=== PATIENT | female | born 1955 | race Caucasian/White ===

== ENCOUNTER → 2016-03-11 | Outpatient (CLI) | payer OTHER | END | disposition home or self-care (01) | LOC: LABWHC1 10:46 | PROVIDERS: ATTEND Orthopaedic Surgery Sports Medicine | DX: Z01.810 Encounter for preprocedural cardiovascular examination (principal); S83.282A Other tear of lateral meniscus, current injury, left knee, initial encounter; S83.242A Other tear of medial meniscus, current injury, left knee, initial encounter | CPT/HCPCS: 36415; 93005 ==

== ENCOUNTER → 2016-04-28 | Outpatient (CLI) | payer OTHER ==
--- NOTE | 2016-04-28 11:02 | MM ---
Reason for exam: history of breast cancer, conservation therapy. Last mammogram was performed 2 years and 6 months ago. History: Patient is postmenopausal and has history of breast cancer at age 58. Benign US breast aspiration single LT of the left breast, January 03, 2016. Benign US breast localization LT, September 26, 2014. Malignant US breast localization LT, November 09, 2013. MG discontinued needle loc LT of the left breast, November 09, 2013. Malignant US biopsy breast VAD LT of the left breast, October 26, 2013. Malignant US biopsy breast add'l VAD LT of the left breast, October 26, 2013. Radiation therapy of the left breast, 2013. Benign US RT VAD breast biopsy of the right breast, October 12, 2011. Benign right breast aspiration of the right breast, October 12, 2011. Excisional biopsy of the right breast, March 17, 2005. Took estrogen for 1 month beginning at age 56. Physical Findings: Nurse did not find any significant physical abnormalities on exam. MG 3D Diag Mammo W/Cad YUDY Bilateral CC and MLO view(s) were taken. Prior study comparison: October 26, 2013, left breast MG diagnostic mammo LT wo CAD. October 03, 2013, bilateral MG screening mammo w CAD. The breast tissue is heterogeneously dense. This may lower the sensitivity of mammography. Benign calcifications. Post operative lumpectomy and radiation therapy changes in the left breast. These results were verbally communicated with the patient and result sheet given to the patient on 04/28/16. ASSESSMENT: Incomplete: need additional imaging evaluation, BI-RAD 0 RECOMMENDATION: Ultrasound of the right breast.
--- NOTE | 2016-04-28 11:04 | USB ---
Reason for exam: additional evaluation requested from abnormal screening. History: Patient is postmenopausal and has history of breast cancer at age 58. Benign US breast aspiration single LT of the left breast, January 03, 2016. Benign US breast localization LT, September 26, 2014. Malignant US breast localization LT, November 09, 2013. MG discontinued needle loc LT of the left breast, November 09, 2013. Malignant US biopsy breast VAD LT of the left breast, October 26, 2013. Malignant US biopsy breast add'l VAD LT of the left breast, October 26, 2013. Radiation therapy of the left breast, 2013. Benign US RT VAD breast biopsy of the right breast, October 12, 2011. Benign right breast aspiration of the right breast, October 12, 2011. Excisional biopsy of the right breast, March 17, 2005. Took estrogen for 1 month beginning at age 56. US Breast BILAT Right breast ultrasound including all four quadrants, the retroareolar region and axilla demonstrates no cystic or solid lesion seen. Left breast ultrasound including all four quadrants, the retroareolar region and axilla demonstrates 2.1 x 1.4 x 4.5cm fluid collection extending behind nipple at 10 o'clock, residual seroma. No suspicious masses bilaterally. These results were verbally communicated with the patient and result sheet given to the patient on 04/28/16. ASSESSMENT: Benign, BI-RAD 2 RECOMMENDATION: Follow-up diagnostic mammogram of both breasts in 1 year. Manage patient on a clinical basis.
== END | disposition home or self-care (01) ==
LOC: RADMAMWWP 09:27
PROVIDERS: ATTEND Radiology Diagnostic Radiology
DX: C50.912 Malignant neoplasm of unspecified site of left female breast (principal); N63 Unspecified lump in breast; R92.8 Other abnormal and inconclusive findings on diagnostic imaging of breast
CPT/HCPCS: 76641; G0204; G0279

== ENCOUNTER → 2016-06-29 | Outpatient (CLI) | payer OTHER ==
--- NOTE | 2016-06-29 09:36 | BD ---
EXAMINATION TYPE: MG DEXA axial skeleton. DATE OF EXAM: 06/29/2016 7:40 AM COMPARISON: 03.28.2015 DEXA bone scan. CLINICAL HISTORY: M19.90 OSTEOARTHRITIS Height: 66 Weight: 155 FRAX RISK QUESTIONS: Alcohol (3 or more units per day): NO Family History (Parent hip fracture): YES, MOTHER Glucocorticoids (More than 3mos): NO (Ex: prednisone, prednisolone, methylprednisolone, dexamethasone, and hydrocortisone). History of Fracture in Adulthood: NO Secondary Osteoporosis: NO 1. Type 1 Diabetes: NO 2. Hyperthyroidism: NO 3. Menopause before 45: NO 4. Malnutrition: NO 5. Chronic liver disease: NO Rheumatoid Arthritis: NO Current Tobacco Use: NO RISK FACTORS HISTORY OF: Family History of Osteoporosis: YES HER MOTHER AND SISTER Smoke tobacco: NO Drink Alcohol: NO Active: YES Diet low in dairy products/other sources of calcium: YES, GETS VERY LITTLE DAIRY Postmenopausal woman: 52 Lost more than 2 inches in height since high school: YES Adrenal Insufficiency: NO MEDICATIONS: Osteoporosis Medications: RECLAST..2016 How Lon YR, AND PRIOR USED FOSAMAX Additional Medications: AREMEDEX FOR 3 YRS, HX OF RADIATION, CALCIUM AND VIT D, XANAX, NEURONTIN, PAIN MEDS AND NSAIDS Additional History: HX OF BREAST CA....2013, 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 Bone mineral density as measured about the Lumbar spine is: ----- L1-L4(G/cm2): 1.206 T Score Values are as follows: ----- L1: -0.5 ----- L2: 0.4 ----- L3: 1.0 ----- L4: -0.2 ----- L1-L4: 0.2 Bone mineral density has: REMAINED THE SAME 0.0% since study of: 03.28.2015 Bone mineral density about the R hip (g/cm2): 0.778 Bone mineral density about the L hip (g/cm2): 0.741 T Score values are as follows: -----R Neck: -1.3 -----L Neck: -1.9 -----R Intertrochanter: -1.8 -----L Intertrochanter: -2.3 Bone mineral density has: Increased 3.1% since study of: 03.28.2015 FRAX %'S: 18.8% OF A CHANCE FOR A MAJOR OSTEOPOROTIC FX AND 1.3% CHANCE FOR A HIP FX....PROBABILI TY IN 10/YRS TIME IMPRESSION: Osteopenia (T Score between -2.5 and -1 as noted by T score values in both hips is redemonstrated and fairly stable. There remains slightly increased risk of fracture and the patient may be considered f or treatment. Re-Screen 1-2 years. NOTE: T-SCORE=SD OF THE YOUNG ADULT MEAN.
== END | disposition home or self-care (01) ==
LOC: RADBDWWP 07:06
PROVIDERS: ATTEND Family Medicine
DX: M85.80 Other specified disorders of bone density and structure, unspecified site (principal)
CPT/HCPCS: 77080

== ENCOUNTER 2016-10-22 17:19 | Emergency (ER) | payer MEDICARE, OTHER ==
[2016-10-22] MEDS ORDERED: DIPH,PERTUS(ACELL)TETVAC-LF 0.5 ML VIAL IM ONE (17:34)
[2016-10-22] MEDS ORDERED: HYDROcodone/APAP 10-325MG 1 EACH TAB PO ONE (17:34)
--- NOTE | 2016-10-22 17:43 | ED ---
Fall HPI - General Chief Complaint: Fall Stated Complaint: fall Time Seen by Provider: 10/22/16 17:28 Source: patient, EMS, RN notes reviewed Mode of arrival: EMS Limitations: no limitations - History of Present Illness Initial Comments: This a 61-year-old female presents emergency department via EMS chief complaint fall. Patient states she was at the [facility] and states that she was walking out states that she tripped and fell before striking her head. Patient did not lose consciousness so she complains of a headache. Patient has a laceration above the left eye. She is unsure last tetanus was. Patient denies any neck, back pain, upper extremity injury. She does complain of mild left knee pain states that she fell on the knee. Patient states she has had recent surgery to her left knee from the meniscus repair. Patient denies any dizziness, chest pain or shortness breath, nausea vomiting. - Related Data Home Medications Medication Instructions Recorded Confirmed ALPRAZolam [Xanax] 1 mg PO Q8HR 09/24/14 07/03/15 Anastrozole [Arimidex] 1 mg PO DAILY 09/24/14 07/03/15 Calcium Carbonate [Calcium] 1,200 mg PO DAILY 09/24/14 07/03/15 Cholecalciferol [Vitamin D3] 2,000 unit PO DAILY 09/24/14 07/03/15 HYDROcodone/APAP 7.5-325MG [Erwin 1 tab PO Q6HR PRN 09/24/14 07/03/15 7.5-325] Multivitamins, Thera [Theragran] 1 each PO DAILY 09/24/14 07/03/15 Cordova-3 Fatty Acids/Fish Oil [Fish 1 each PO DAILY 09/24/14 07/03/15 Oil 1,000 mg Softgel] amLODIPine [Norvasc] 5 mg PO DAILY 09/24/14 07/03/15 Previous Rx's Medication Instructions Recorded HYDROcodone/APAP 7.5-325MG [Erwin 1 each PO Q4H PRN #60 tab 09/26/14 7.5] Allergies Allergy/AdvReac Type Severity Reaction Status Date / Time sulfamethoxazole Allergy Rash/Hives Verified 10/22/16 17:29 [From Bactrim] trimethoprim [From Bactrim] Allergy Rash/Hives Verified 10/22/16 17:29 Review of Systems ROS Statement: Those systems with pertinent positive or pertinent negative responses have been documented in the HPI. ROS Other: All systems not noted in ROS Statement are negative. Past Medical History Past Medical History: Cancer, Hypertension, Osteoarthritis (OA) History of Any Multi-Drug Resistant Organisms: None Reported Past Surgical History: Breast Surgery, Tubal Ligation Additional Past Surgical History / Comment(s): BIOPSIES X 2 OF RIGHT BREAST. US CORE BX OF LEFT BREAST. Past Anesthesia/Blood Transfusion Reactions: No Reported Reaction Past Psychological History: Anxiety Smoking Status: Former smoker Past Alcohol Use History: Rare Past Drug Use History: None Reported - Past Family History Mother Family Medical History: No Reported History General Exam Limitations: no limitations General appearance: alert, in no apparent distress Head exam: Present: atraumatic, normocephalic, normal inspection Eye exam: Present: normal appearance, PERRL, EOMI, periorbital swelling (Mild left), periorbital tenderness (Mild left), other (5 cm laceration over the left superior orbital region). Absent: scleral icterus, conjunctival injection ENT exam: Present: normal exam, normal oropharynx, mucous membranes moist, TM's normal bilaterally Neck exam: Present: normal inspection. Absent: tenderness, meningismus, full ROM (Patient in c-collar), lymphadenopathy Respiratory exam: Present: normal lung sounds bilaterally. Absent: respiratory distress, wheezes, rales, rhonchi, stridor Cardiovascular Exam: Present: regular rate, normal rhythm, normal heart sounds. Absent: systolic murmur, diastolic murmur, rubs, gallop, clicks Extremities exam: Present: other (Left knee small abrasion noted, mild tenderness with palpation full range of motion neurovascular intact) Back exam: Present: full ROM. Absent: tenderness Neurological exam: Present: alert, oriented X3, CN II-XII intact, reflexes normal. Absent: motor sensory deficit Skin exam: Present: warm, dry, intact, normal color. Absent: rash Course Vital Signs 10/22/16 17:27 Temperature 97.1 F L Pulse Rate 91 Respiratory 18 Rate Blood Pressure 153/80 O2 Sat by Pulse 98 Oximetry Procedures - Laceration Laceration #1 Consent Obtained: verbal consent Indication: laceration Site: face Size (cm): 5 Description: linear Depth: simple, single layer Anesthetic Used: lidocaine 1%, without epi Anesthesia Technique: local infiltration Amount (mls): 5 Pre-repair: wound explored, irrigated extensively, deep structures intact Type of Sutures: nylon Size of Sutures: 6-0 Number of Sutures: 10 Technique: simple, interrupted Patient Tolerated Procedure: well, no complications Medical Decision Making - Medical Decision Making 61-year-old female presented for fall, facial laceration and left knee injury. Patient had CT of the brain and C-spine CT brain does not show acute abnormality. There is a large moderate degenerative changes of the cervical spine and is questionable C3 states he for subluxation though patient had no pain prior to CT and has no pain with c-collar off and has full range of motion. This is secondary to degenerative changes. Patient has no instability and again has no pain with movement or at rest of her neck. Patient's laceration was closed using sutures patient will return in 7 days for suture removal. Patient's tetanus was updated Disposition Clinical Impression: Fall, Head injury, Facial laceration, Contusion of left knee Disposition: HOME SELF-CARE Condition: Stable Instructions: Care For Your Stitches (ED), Facial Laceration (ED), Head Injury (ED) Additional Instructions: Return in 7 days for suture removalPlease return to the Emergency Department if symptoms worsen or any other concerns. Referrals: Mir Thorpe DO [Primary Care Provider] - 1-2 days Time of Disposition: 19:04
--- NOTE | 2016-10-22 18:04 | CT ---
EXAMINATION TYPE: CT brain rin burciaga DATE OF EXAM: 10/22/2016 COMPARISON: NONE HISTORY: Trip and fall with laceration above left eye. CT DLP: 1616.00 mGycm Automated exposure control for dose reduction was used. TECHNIQUE: CT scan of the head and cervical spine are performed without contrast. FINDINGS: Ventricles and sulci appear normal. There is no mass effect nor midline shift. There is n o sign of intracranial hemorrhage. The calvarium appears intact. There is fluid level in left maxilla ry sinus. There is mild straightening of the vertebra. There is a few millimeter anterior subluxation of C3 in relation to C4. Facet joints are intact. Posterior elements are intact. The skull base is intact. The re is endplate spur formation and some mild relative spinal stenosis in the lower cervical spine. Thi s is present at the 4-5 C5-6 C6-7. IMPRESSION: Negative CT scan of the brain. Spondylotic changes in the lower cervical spine. Mild subluxation at C3-4 could relate to mild ligamentous injury. No fracture.
--- NOTE | 2016-10-22 18:51 | XR ---
EXAMINATION TYPE: XR knee complete LT DATE OF EXAM: 10/22/2016 COMPARISON: NONE HISTORY: Knee pain TECHNIQUE: 3 views FINDINGS: I see no fracture nor dislocation. There is no sign of joint effusion. There is minimal spu rring of the femoral and tibial condyles. IMPRESSION: Mild spurring without significant joint space narrowing. No fracture.
[2016-10-22 19:12] VITALS: BP 140/67; PULSE 89; RESP 16; TEMP 97.8
== END 2016-10-22 19:12 | disposition home or self-care (01) ==
LOC: EC 17:19
DX: S05.42XA Penetrating wound of orbit with or without foreign body, left eye, initial encounter (principal); I10 Essential (primary) hypertension; M19.90 Unspecified osteoarthritis, unspecified site; F41.9 Anxiety disorder, unspecified; Z23 Encounter for immunization; Z85.3 Personal history of malignant neoplasm of breast; Z87.891 Personal history of nicotine dependence; Z79.899 Other long term (current) drug therapy; Z88.2 Allergy status to sulfonamides; W01.10XA Fall on same level from slipping, tripping and stumbling with subsequent striking against unspecified object, initial encounter; Y92.89 Other specified places as the place of occurrence of the external cause
CPT/HCPCS: 12013; 70450; 72125; 90471; 90715; 99283

== ENCOUNTER → 2016-10-23 | Outpatient (CLI) | payer MEDICARE, OTHER ==
--- NOTE | 2016-10-23 20:32 | MR ---
EXAMINATION TYPE: MR shoulder RT wo con DATE OF EXAM: 10/23/2016 COMPARISON: NONE HISTORY: Rt shoulder pain x 1-2 years, no trauma TECHNIQUE: Multiplanar, multisequence imaging of the right shoulder is performed without contrast. FINDINGS: There is some motion on the exam. Rotator Cuff: Abnormal increased signal present within the rotator cuff tendon, there is abnormal thi ckening compatible with tendinosis. Difficult to exclude a small undersurface tear, possible partial full-thickness tear at the anterior insertion. Acromioclavicular Joint: Hypertrophic change at the acromioclavicular joint causes mass effect on the musculotendinous junction is persistent haziness Glenohumeral Joint: There is hypertrophic change present. Marginal spurring present at the proximal h umerus. Labrum: Abnormal increased signal present within the labrum, the posterior aspect there is some incre ased signal suggestive of a possible tear along the posterior and superior aspects Biceps Tendon: Fluid signal is present along the tendon shows a normal position Bone marrow signal: Small pseudocysts present within the humeral head. Other: There is a joint effusion. Fluid signal present in the subacromial subdeltoid bursa is minimal . Fluid signal extends distribution of subscapularis. IMPRESSION: Tendinosis with possible partial tear as described spontaneous insertion. Joint effusion. Tenosynovit is. Osteoarthritic change. Possible labral tear as described.
== END | disposition home or self-care (01) ==
LOC: RADMRIMAIN 17:40
PROVIDERS: ATTEND Family Medicine
DX: M65.811 Other synovitis and tenosynovitis, right shoulder (principal); M67.813 Other specified disorders of tendon, right shoulder; M19.011 Primary osteoarthritis, right shoulder

== ENCOUNTER → 2017-07-30 | Outpatient (CLI) | payer MEDICARE, OTHER ==
--- NOTE | 2017-07-30 16:18 | XR ---
EXAMINATION TYPE: XR foot complete bilateral DATE OF EXAM: 07/30/2017 COMPARISON: NONE HISTORY: Bilateral foot pain, right foot numb. Pain in left foot TECHNIQUE: Bilateral feet are examined in 3 projections each. FINDINGS: Right foot: There is a oblique fracture through the mid diaphysis third metatarsal with abundant call us formation present. There is approximately 50% lateral displacement of the distal fracture fragment in relation to the proximal fracture fragment. Angulation is not identified. This may have incomplet e union. Hallux valgus deformity is present. No additional fractures the right foot are evident. Ac hilles tendon calcaneal heel spur is present. Left foot: No acute fracture is evident. Alignment appears normal. Soft tissues are normal. Minimal s purring at the tarsometatarsal junction is present superiorly. Small plantar calcaneal heel spur is p resent. IMPRESSION: 1. Oblique fracture mid diaphysis right third metatarsal with abundant callus formation. This may be incomplete union of a fracture. 2. Left plantar calcaneal heel spur and right Achilles tendon calcaneal heel spur. 3. Right hallux valgus deformity
== END | disposition home or self-care (01) ==
LOC: RADXRMAIN 11:28
PROVIDERS: ATTEND Family Medicine
DX: S92.331A Displaced fracture of third metatarsal bone, right foot, initial encounter for closed fracture (principal); M77.32 Calcaneal spur, left foot; M77.31 Calcaneal spur, right foot; M20.11 Hallux valgus (acquired), right foot; M25.774 Osteophyte, right foot

== ENCOUNTER → 2017-08-26 | Outpatient (CLI) | payer MEDICARE, OTHER ==
--- NOTE | 2017-08-26 14:22 | CT ---
EXAMINATION TYPE: CT foot RT wo con DATE OF EXAM: 08/26/2017 COMPARISON: NONE HISTORY: Right foot pain CT DLP: 245.70 mGycm Automated exposure control for dose reduction was used. TECHNIQUE: Axial plane images at 2 mm thick sections. Reconstructed images in the coronal and sagitta l plane are reviewed on the computer. Three-D reconstructed images performed separately on the [facility] a computer by the technologist are reviewed. FINDINGS: There is a fracture of the distal diaphyseal third metatarsal. Callus formation about the site. There is incomplete union. No acute fractures are evident. The ankle mortise is intact IMPRESSION: NONUNION OF THE DISTAL THIRD METATARSAL FRACTURE WITH OVERLYING CALLUS FORMATION.
== END | disposition home or self-care (01) ==
LOC: RADCTMAIN 09:01
PROVIDERS: ATTEND Orthopaedic Surgery
DX: S92.331K Displaced fracture of third metatarsal bone, right foot, subsequent encounter for fracture with nonunion (principal)
CPT/HCPCS: 82306

== ENCOUNTER → 2017-10-27 | Outpatient (CLI) | payer MEDICARE, OTHER | END | disposition home or self-care (01) | LOC: LABWHC1 11:20 | PROVIDERS: ATTEND Orthopaedic Surgery | DX: E55.9 Vitamin D deficiency, unspecified (principal) | CPT/HCPCS: 36415; 82306 ==

== ENCOUNTER → 2018-05-02 | Outpatient (CLI) | payer MEDICARE, OTHER ==
--- NOTE | 2018-05-03 13:35 | MM ---
Reason for exam: clinical finding. Last mammogram was performed 1 year ago. History: Patient is postmenopausal and has history of breast cancer at age 58. Benign US breast aspiration single LT of the left breast, January 03, 2016. Benign US breast localization LT, September 26, 2014. Malignant US breast localization LT, November 09, 2013. MG discontinued needle loc LT of the left breast, November 09, 2013. Malignant US biopsy breast VAD LT of the left breast, October 26, 2013. Malignant US biopsy breast add'l VAD LT of the left breast, October 26, 2013. Radiation therapy of the left breast, 2013. Benign US RT VAD breast biopsy of the right breast, October 12, 2011. Benign right breast aspiration of the right breast, October 12, 2011. Excisional biopsy of the right breast, March 17, 2005. Took estrogen for 1 month beginning at age 56. Taking antineoplastic beginning at age 58. Physical Findings: Nurse did not find any significant physical abnormalities on exam. MG 3D Diag Mammo W/Cad LT CC and MLO view(s) were taken of the left breast. Prior study comparison: May 05, 2017, mammogram, performed at [facility]. April 28, 2016, bilateral MG 3d diag mammo w/cad YUDY. October 26, 2013, left breast MG diagnostic mammo LT wo CAD. Finding: Architectural distortion in the left breast decreased in size consistent with known lumpectomy changes. Previous mammotome biopsy in the left breast. There is no discrete abnormality. These results were verbally communicated with the patient and result sheet given to the patient on 05/03/18. ASSESSMENT: Benign, BI-RAD 2 RECOMMENDATION: Follow-up diagnostic mammogram of the left breast. (scheduled for 05/11/18)
--- NOTE | 2018-05-03 13:39 | USB ---
Reason for exam: clinical finding. History: Patient is postmenopausal and has history of breast cancer at age 58. Benign US breast aspiration single LT of the left breast, January 03, 2016. Benign US breast localization LT, September 26, 2014. Malignant US breast localization LT, November 09, 2013. MG discontinued needle loc LT of the left breast, November 09, 2013. Malignant US biopsy breast VAD LT of the left breast, October 26, 2013. Malignant US biopsy breast add'l VAD LT of the left breast, October 26, 2013. Radiation therapy of the left breast, 2013. Benign US RT VAD breast biopsy of the right breast, October 12, 2011. Benign right breast aspiration of the right breast, October 12, 2011. Excisional biopsy of the right breast, March 17, 2005. Took estrogen for 1 month beginning at age 56. Taking antineoplastic beginning at age 58. US Breast LT Left complete breast ultrasound includes all four quadrants, the retroareolar region and axilla. Finding demonstrates a 2.4cm cystic lesion at 1 o'clock, a 1.5 x 2.5 x 0.3cm cystic lesion at 2 o'clock probable thin walled fluid collection/seroma, a scar shadow at 8 o'clock and a 1.8 x 1.9 x 1.2cm mixed lesion at 11 o'clock, post surgical questionable scar as two stable scar seen on mammogram. These results were verbally communicated with the patient and result sheet given to the patient on 05/03/18. ASSESSMENT: Probably benign, BI-RAD 3 RECOMMENDATION: Ultrasound of the left breast in 6 months. Consider if strong suspicion persists.
== END | disposition home or self-care (01) ==
LOC: RADMAMWWP 08:05
PROVIDERS: ATTEND Internal Medicine Hematology & Oncology
DX: N64.4 Mastodynia (principal); N63.20 Unspecified lump in the left breast, unspecified quadrant; Z85.3 Personal history of malignant neoplasm of breast
CPT/HCPCS: 77065; 76641; G0279; 77061

== ENCOUNTER → 2018-05-11 | Outpatient (CLI) | payer MEDICARE, OTHER ==
--- NOTE | 2018-05-11 11:21 | MM ---
Reason for exam: additional evaluation requested from prior study. Last mammogram was performed less than 1 month ago. History: Patient is postmenopausal and has history of breast cancer at age 58. Benign US breast aspiration single LT of the left breast, January 03, 2016. Benign US breast localization LT, September 26, 2014. Malignant US breast localization LT, November 09, 2013. MG discontinued needle loc LT of the left breast, November 09, 2013. Malignant US biopsy breast VAD LT of the left breast, October 26, 2013. Malignant US biopsy breast add'l VAD LT of the left breast, October 26, 2013. Radiation therapy of the left breast, 2013. Benign US RT VAD breast biopsy of the right breast, October 12, 2011. Benign right breast aspiration of the right breast, October 12, 2011. Excisional biopsy of the right breast, March 17, 2005. Took estrogen for 1 month beginning at age 56. Taking antineoplastic beginning at age 58. Physical Findings: Nurse did not find any significant physical abnormalities on exam. MG 3D Diag Mammo W/Cad RT CC and MLO view(s) were taken of the right breast. Prior study comparison: May 05, 2017, mammogram, performed at [facility]. The breast tissue is heterogeneously dense. This may lower the sensitivity of mammography. There are benign appearing round calcifications in the right breast. Previous mammotome biopsy in the right breast. There is no discrete abnormality. These results were verbally communicated with the patient and result sheet given to the patient on 05/11/18. ASSESSMENT: Benign, BI-RAD 2 RECOMMENDATION: Follow-up diagnostic mammogram of both breasts in 1 year.
== END | disposition home or self-care (01) ==
LOC: RADMAMWWP 10:34
PROVIDERS: ATTEND Internal Medicine Hematology & Oncology
DX: Z08 Encounter for follow-up examination after completed treatment for malignant neoplasm (principal); Z85.3 Personal history of malignant neoplasm of breast
CPT/HCPCS: 77065; G0279; 77061

== ENCOUNTER → 2018-07-04 | Outpatient (CLI) | payer MEDICARE, OTHER ==
--- NOTE | 2018-07-04 18:59 | BD ---
EXAMINATION TYPE: Axial Bone Density DATE OF EXAM: 07/04/2018 COMPARISON: 06/29/2016 CLINICAL HISTORY: 63-year-old female long-term, current use of aromatase, osteopenia Height: 67.2 IN Weight: 170 LBS FRAX RISK QUESTIONS: Family History (Parent hip fracture): YES MOTHER History of Fracture in Adulthood: YES RT TOE AGE 63 RISK FACTORS HISTORY OF: Family History of Osteoporosis: YES MOTHER AND SISTER Active: YES Diet low in dairy products/other sources of calcium: YES Postmenopausal woman: AGE 52 Take estrogen and/or progesterone medications: NOT NOW How long: AGE [age] Lost more than 2 inches in height since high school: YES 3" HEIGHT LOSS MEDICATIONS: Osteoporosis Medications: Which medication: RECLAST INJ How Lon YEARS Additional Medications: ARIMIDEX, CALCIUM, VIT D, AMLODIPINE, NSAID,MULTI VIT, FISH OIL, Additional History: BREAST CANCER WITH RADIATION EXAM MEASUREMENTS: Bone mineral densitometry was performed using the [employer]. Bone mineral density as measured about the Lumbar spine is: ----- L1-L4(G/cm2): 1.299 T Score Values are as follows: ----- L2: 1.1 ----- L3: 1.7 ----- L4: 1.2 ----- L1-L4: 1.0 Bone mineral density has: Increased 9.5% since study of: 06/29/2016 Bone mineral density about the R hip (g/cm2): 0.906 Bone mineral density about the L hip (g/cm2): 0.821 T Score values are as follows: -----R Neck: -1.0 -----L Neck: -1.6 -----R Total: -1.6 -----L Total: -2.0 Bone mineral density has: Increased 2.8% since study of: 07/02/2016 IMPRESSION: Osteopenia (T Score between -2.5 and -1). There is slightly increased risk of fracture and the patient may be considered for treatment. Re-Screen 2-5 years. NOTE: T-SCORE=SD OF THE YOUNG ADULT MEAN.
== END ==
LOC: RADBDWWP 09:42
PROVIDERS: ATTEND Internal Medicine Hematology & Oncology
DX: M85.80 Other specified disorders of bone density and structure, unspecified site (principal); N95.1 Menopausal and female climacteric states; C50.919 Malignant neoplasm of unspecified site of unspecified female breast
CPT/HCPCS: 77080

== ENCOUNTER → 2019-05-15 | Outpatient (CLI) | payer MEDICARE, OTHER ==
--- NOTE | 2019-05-15 12:17 | MM ---
Reason for exam: additional evaluation requested from prior study. Last mammogram was performed 1 year ago. History: Patient is postmenopausal and has history of breast cancer at age 58. Benign US breast aspiration single LT of the left breast, January 03, 2016. Benign US breast localization LT, September 26, 2014. Malignant US breast localization LT, November 09, 2013. MG discontinued needle loc LT of the left breast, November 09, 2013. Malignant US biopsy breast VAD LT of the left breast, October 26, 2013. Malignant US biopsy breast add'l VAD LT of the left breast, October 26, 2013. Radiation therapy of the left breast, 2013. Benign US RT VAD breast biopsy of the right breast, October 12, 2011. Benign right breast aspiration of the right breast, October 12, 2011. Excisional biopsy of the right breast, March 17, 2005. Took estrogen for 1 month beginning at age 56. Taking antineoplastic beginning at age 58. Physical Findings: Nurse did not find any significant physical abnormalities on exam. MG 3D Diag Mammo W/Cad YUDY Bilateral CC and MLO view(s) were taken. Prior study comparison: May 11, 2018, right breast MG 3d diag mammo w/cad RT. May 02, 2018, left breast MG 3d diag mammo w/cad LT. The breast tissue is heterogeneously dense. This may lower the sensitivity of mammography. No suspicious abnormality. Right biopsy marker noted. Post therapy change on the left. These results were verbally communicated with the patient and result sheet given to the patient on 05/15/19. ASSESSMENT: Benign, BI-RAD 2 RECOMMENDATION: Follow-up diagnostic mammogram of both breasts in 1 year.
== END | disposition home or self-care (01) ==
LOC: RADMAMWWP 10:44
PROVIDERS: ATTEND Radiology Diagnostic Radiology
DX: C50.912 Malignant neoplasm of unspecified site of left female breast (principal)
CPT/HCPCS: 77066; G0279; 77062

== ENCOUNTER → 2020-05-15 | Outpatient (CLI) | payer MEDICARE, OTHER ==
--- NOTE | 2020-05-15 13:08 | MM ---
Reason for exam: additional evaluation requested from prior study. Last mammogram was performed 1 year ago. History: Patient is postmenopausal and has history of breast cancer at age 58. Benign US breast aspiration single LT of the left breast, January 03, 2016. Benign US breast localization LT, September 26, 2014. Malignant US breast localization LT, November 09, 2013. MG discontinued needle loc LT of the left breast, November 09, 2013. Malignant US biopsy breast VAD LT of the left breast, October 26, 2013. Malignant US biopsy breast add'l VAD LT of the left breast, October 26, 2013. Radiation therapy of the left breast, 2013. Benign US RT VAD breast biopsy of the right breast, October 12, 2011. Benign right breast aspiration of the right breast, October 12, 2011. Excisional biopsy of the right breast, March 17, 2005. Took estrogen for 1 month beginning at age 56. Taking antineoplastic beginning at age 58. Physical Findings: Nurse did not find any significant physical abnormalities on exam. MG 3D Diag Mammo W/Cad YUDY Bilateral CC and MLO view(s) were taken. Prior study comparison: May 15, 2019, bilateral MG 3d diag mammo w/cad YUDY. May 11, 2018, right breast MG 3d diag mammo w/cad RT. The breast tissue is heterogeneously dense. This may lower the sensitivity of mammography. Previous mammotome biopsy in the right and left breast. Post surgical and post therapy change and chronic deformity of the left breast. Stable superior punctate calcification on the left. No significant new findings when compared with previous films. These results were verbally communicated with the patient and result sheet given to the patient on 05/15/20. ASSESSMENT: Benign, BI-RAD 2 RECOMMENDATION: Follow-up diagnostic mammogram of both breasts in 1 year.
== END | disposition home or self-care (01) ==
LOC: RADMAMWWP 10:44
PROVIDERS: ATTEND Radiology Diagnostic Radiology
DX: C50.912 Malignant neoplasm of unspecified site of left female breast (principal)
CPT/HCPCS: 77066; G0279; 77062

== ENCOUNTER → 2020-07-09 | Outpatient (CLI) | payer MEDICARE, OTHER ==
--- NOTE | 2020-07-09 13:19 | BD ---
EXAMINATION TYPE: Axial Bone Density DATE OF EXAM: 07/09/2020 COMPARISON: NONE CLINICAL HISTORY: Height: 5 FT 8 IN Weight: 185 FRAX RISK QUESTIONS: Alcohol (3 or more units per day): NO Family History (Parent hip fracture): YES Glucocorticoids (More than 3mos): NO (Ex: prednisone, prednisolone, methylprednisolone, dexamethasone, and hydrocortisone). History of Fracture in Adulthood: YES Secondary Osteoporosis: 1. Type 1 Diabetes: NO 2. Hyperthyroidism: NO 3. Menopause before 45: NO 4. Malnutrition: NO 5. Chronic liver disease: NO Rheumatoid Arthritis: NO Current Tobacco Use: FORMER RISK FACTORS HISTORY OF: Surgery to Spine/Hip(right/left)/Wrist (right/left): NO Family History of Osteoporosis: YES Active: SOMEWHAT Diet low in dairy products/other sources of calcium: NO Postmenopausal woman: AGE 52 Take estrogen and/or progesterone medications: NO Lost more than 2 inches in height since high school: YES MEDICATIONS: Additional Medications: HORMONE MARISOL, AMLODIPINE, LIPITOR, ALLERGY MEDS, Additional History: BREAST CANCER 2013 RADIATION EXAM MEASUREMENTS: Bone mineral densitometry was performed using the [employer] System. Bone mineral density as measured about the Lumbar spine is: ----- L1-L4(G/cm2): 1.353 T Score Values are as follows: ----- L2: 1.8 ----- L3: 2.0 ----- L4: 1.6 ----- L1-L4: 1.4 Bone mineral density has: INCREASED 4.1 % since study of: 2019 Bone mineral density about the R hip (g/cm2): 0.885 Bone mineral density about the L hip (g/cm2): 0.813 T Score values are as follows: -----R Neck: -1.1 -----L Neck: -1.6 -----R Total: -1.7 -----L Total: -1.9 Bone mineral density has: DECREASED -0.1 % since study of: 2019 IMPRESSION: Osteopenia NOTE: T-SCORE=SD OF THE YOUNG ADULT MEAN.
== END | disposition home or self-care (01) ==
LOC: RADBDWWP 09:08
PROVIDERS: ATTEND Internal Medicine Hematology & Oncology
DX: M85.80 Other specified disorders of bone density and structure, unspecified site (principal)
CPT/HCPCS: 77080

== ENCOUNTER → 2021-05-16 | Outpatient (CLI) | payer MEDICARE, OTHER ==
--- NOTE | 2021-05-16 10:52 | MM ---
Reason for exam: additional evaluation requested from prior study. Last mammogram was performed 1 year ago. History: Patient is postmenopausal and has history of breast cancer at age 58. Benign US breast aspiration single LT of the left breast, January 03, 2016. Benign US breast localization LT, September 26, 2014. Malignant US breast localization LT, November 09, 2013. MG discontinued needle loc LT of the left breast, November 09, 2013. Malignant US biopsy breast VAD LT of the left breast, October 26, 2013. Malignant US biopsy breast add'l VAD LT of the left breast, October 26, 2013. Radiation therapy of the left breast, 2013. Benign US RT VAD breast biopsy of the right breast, October 12, 2011. Benign right breast aspiration of the right breast, October 12, 2011. Excisional biopsy of the right breast, March 17, 2005. Took estrogen for 1 month beginning at age 56. Taking antineoplastic beginning at age 58. Physical Findings: A clinical breast exam by your physician is recommended on an annual basis and results should be correlated with mammographic findings. MG 3D Diag Mammo W/Cad YUDY Bilateral CC and MLO view(s) were taken. Prior study comparison: May 15, 2020, bilateral MG 3d diag mammo w/cad YUDY. May 15, 2019, bilateral MG 3d diag mammo w/cad YUDY. The breast tissue is heterogeneously dense. This may lower the sensitivity of mammography. No suspicious calcifications or masses are seen. Previous mammotome biopsy in the right breast. Stable post lumpectomy and radiation therapy changes left breast. These results were verbally communicated with the patient and result sheet given to the patient on 05/16/21. ASSESSMENT: Benign, BI-RAD 2 RECOMMENDATION: Follow-up diagnostic mammogram of both breasts in 1 year.
== END | disposition home or self-care (01) ==
LOC: RADMAMWWP 10:15
PROVIDERS: ATTEND Radiology Diagnostic Radiology
DX: R92.8 Other abnormal and inconclusive findings on diagnostic imaging of breast (principal); Z78.0 Asymptomatic menopausal state; Z85.3 Personal history of malignant neoplasm of breast
CPT/HCPCS: 77066; G0279; 77062

== ENCOUNTER → 2022-04-06 | Outpatient (CLI) | payer MEDICARE, OTHER ==
--- NOTE | 2022-04-06 07:45 | XR ---
EXAMINATION TYPE: XR Hip Complete RT DATE OF EXAM: 04/06/2022 7:39 AM INDICATION: Patient age:Female; 67 years old; Reason for study: M16.11; [facility]. COMPARISON: MR right hip 02/18/2017. TECHNIQUE: The right hip was examined in the frontal and lateral projections . FINDINGS: No acute fracture or dislocation. Moderate medial joint space narrowing with marginal aceta bular osteophytosis and acetabular sclerosis. No soft tissue edema. IMPRESSION: 1. No acute osseous pathology. 2. Moderate osteoarthritic changes of the right hip.
== END | disposition home or self-care (01) ==
LOC: RADXRMAIN 07:24
PROVIDERS: ATTEND Physical Medicine & Rehabilitation
DX: M16.11 Unilateral primary osteoarthritis, right hip (principal); M47.816 Spondylosis without myelopathy or radiculopathy, lumbar region; M51.37 Other intervertebral disc degeneration, lumbosacral region; M51.26 Other intervertebral disc displacement, lumbar region; M48.062 Spinal stenosis, lumbar region with neurogenic claudication
CPT/HCPCS: 73502

== ENCOUNTER 2022-10-08 12:38 | Inpatient (IN) | payer MEDICARE, OTHER ==
[2022-10-08] MEDS ORDERED: SODIUM CHLORIDE 0.9% 1,000 ML IV STA (12:50)
[2022-10-08] MEDS ORDERED: PANTOPRAZOLE 40 MG/10 ML VIAL IVP STA (12:53)
--- NOTE | 2022-10-08 12:53 | ED ---
General Adult HPI - General Chief complaint: GI Bleed Stated complaint: rectal bleeding Time Seen by Provider: 10/08/22 12:46 Source: patient, EMS Mode of arrival: EMS - History of Present Illness Initial comments: Dictation was produced using [employer] dictation software. please excuse any grammatical, word or spelling errors. Chief Complaint: 67-year-old female presents emergency department for GI bleed History of Present Illness: 67-year-old female presents emergency department for bloody stools. Patient had mixture of bright blood per rectum and black tarry stools. Patient is also lower abdominal pain. Denies any fevers. This showed nauseated. No vomiting. No history of anticoagulation use. EMS provide some history states that she was very tachycardic and very ill-appearing upon initial evaluation. En route to the emergency department her clinical condition improved. Patient denies any rectal pain. Denies any history of diverticulitis. The ROS documented in this emergency department record has been reviewed and confirmed by me. Those systems with pertinent positive or negative responses have been documented in the HPI. All other systems are other negative and/or noncontributory. - Related Data Home Medications Medication Instructions Recorded Confirmed Calcium Carbonate [Calcium] 1,200 mg PO DAILY 09/24/14 10/08/22 Multivitamins, Thera [Theragran] 1 tab PO DAILY 09/24/14 10/08/22 [place]-3 Fatty Acids/Fish Oil [Fish 1 cap PO DAILY 09/24/14 10/08/22 Oil 1,000 mg Softgel] amLODIPine [Norvasc] 5 mg PO DAILY 09/24/14 10/08/22 Atorvastatin [Lipitor] 40 mg PO HS 10/08/22 10/08/22 Baclofen 10 mg PO HS PRN 10/08/22 10/08/22 Cetirizine HCl 10 mg PO DAILY 10/08/22 10/08/22 Cholecalciferol [Vitamin D3 (25 50 mcg PO DAILY 10/08/22 10/08/22 Mcg = 1000 Iu)] Clobetasol Propionate [Temovate 1 applic TOPICAL BID PRN 10/08/22 10/08/22 0.05% Oint] Fluticasone Furoate [Flonase 2 spray EA NOSTRIL DAILY PRN 10/08/22 10/08/22 Sensimist] HYDROcodone/APAP 10-325MG [[place] 1 tab PO BID PRN 10/08/22 10/08/22 10-325] Nabumetone [Relafen] 750 mg PO BID PRN 10/08/22 10/08/22 Allergies Allergy/AdvReac Type Severity Reaction Status Date / Time sulfamethoxazole Allergy Rash/Hives Verified 10/08/22 14:14 [From Bactrim] trimethoprim [From Bactrim] Allergy Rash/Hives Verified 10/08/22 14:14 Review of Systems ROS Statement: Those systems with pertinent positive or pertinent negative responses have been documented in the HPI. ROS Other: All systems not noted in ROS Statement are negative. Past Medical History Past Medical History: Cancer, Hypertension, Osteoarthritis (OA) History of Any Multi-Drug Resistant Organisms: None Reported Past Surgical History: Breast Surgery, Tubal Ligation Additional Past Surgical History / Comment(s): BIOPSIES X 2 OF RIGHT BREAST. US CORE BX OF LEFT BREAST. Past Anesthesia/Blood Transfusion Reactions: No Reported Reaction Past Psychological History: Anxiety Past Alcohol Use History: Rare Past Drug Use History: None Reported - Past Family History Mother Family Medical History: No Reported History General Exam - General Exam Comments Initial Comments: PHYSICAL EXAM: General Impression: Alert and oriented x3, not in acute distress HEENT: Normocephalic atraumatic, extra-ocular movements intact, pupils equal and reactive to light bilaterally, mucous membranes moist. Cardiovascular: Heart regular rate and rhythm Chest: Able to complete full sentences, no retractions, no tachypnea Abdomen: abdomen soft, palpatory tenderness to the lower abdomen, non-distended, no organomegaly Musculoskeletal: Pulses present and equal in all extremities, no peripheral edema Motor: no focal deficits noted Neurological: CN II-XII grossly intact, no focal motor or sensory deficits noted Skin: Intact with no visualized rashes Psych: Normal affect and mood Rectal: Bright red blood per rectum Course Vital Signs 10/08/22 10/08/22 10/08/22 12:39 12:56 14:15 Temperature 97.4 F L Pulse Rate 144 H 122 H 106 H Respiratory 15 17 17 Rate Blood Pressure 148/87 148/87 128/77 O2 Sat by Pulse 96 98 98 Oximetry Medical Decision Making - Medical Decision Making Was pt. sent in by a medical professional or institution (, PA, BEAMER OPERATOR, urgent care, hospital, or correction...) When possible be specific @ -No Did you speak to anyone other than the patient for history (EMS, parent, family, police, friend...)? What history was obtained from this source @ -No Did you review nursing and triage notes (agree or disagree)? Why? @ -I reviewed and agree with nursing and triage notes Were old charts reviewed (outside hosp., previous admission, EMS record, old EKG, old radiological studies, urgent care reports/EKG's, correction records)? Report findings @ -No old charts were reviewed Differential Diagnosis (chest pain, altered mental status, abdominal pain women, abdominal pain men, vaginal bleeding, musculoskeletal, weakness, fever, dyspnea, syncope, headache, dizziness, GI bleed, back pain, seizure, CVA, palpatations, mental health)? @ -Differential GI Bleed: Esophageal varices, aortoenteric fistula, Judith-Fung, gastritis, peptic ulcer disease, diverticulosis, inflammatory bowel disease, hemorrhoids, fissure, colitis, malignancy, Meckels diverticulum, this is not meant to be an all- inclusive list. X-rays interpreted by me (1pt min.). @ -None done CT interpreted by me (1pt min.). @ -None done U/S interpreted by me (1pt. min.). @ -None done What testing was considered but not performed or refused? (CT, X-rays, U/S, labs)? Why? @ -None What meds were considered but not given or refused? Why? @ -None Did you discuss the management of the patient with other professionals (professionals i.e. , PA, BEAMER OPERATOR, lab, RT, psych nurse, social insurance analyst, ground operations crew member, teacher, highway patrol officer, case filler)? Give summary @ -Case discussed with Dr. Escalante for admission Was smoking cessation discussed for >3mins.? @ -No Was critical care preformed (if so, how long)? @ -No Were there social determinants of health that impacted care today? How? (Homelessness, low income, unemployed, alcoholism, drug addiction, transport ation, low edu. Level, literacy, decrease access to med. care, alf, rehab)? @ -No Was there de-escalation of care discussed even if they declined (Discuss DNR or withdrawal of care, Hospice)? DNR status @ -No What co-morbidities impacted this encounter? (DM, HTN, Smoking, COPD, CAD, Cancer, CVA, ARF, Chemo, Hep., AIDS, mental health diagnosis, sleep apnea, morbid obesity)? @ -None Was patient admitted / discharged? Hospital course, mention meds given and route, prescriptions, significant lab abnormalities, going to OR and other pertinent info. @ -67-year-old female presents with GI bleed. Vital signs upon arrival shows tachycardia 144 initially. Rest of labs unremarkable. Patient observed in emergency department. Heart rate improved though still slightly tachycardic. Computed tomography scan of the abdomen and pelvis shows no evidence of diverticulitis or findings to suggest ischemic colitis. Patient reevaluated bedside still tachycardic. Given unstable vitals, ill appearance patient be admitted with medical monitoring and consultation to GI. Undiagnosed new problem with uncertain prognosis? @ -No Drug Therapy requiring intensive monitoring for toxicity (Heparin, Nitro, Insulin, Cardizem)? @ -No Were any procedures done? @ -No Diagnosis/symptom? Acute, or Chronic, or Acute on Chronic? Uncomplicated (wit hout systemic symptoms) or Complicated (systemic symptoms)? @ -1. GI bleed Side effects of treatment? @ -No Exacerbation, Progression, or Severe Exacerbation? @ -No Poses a threat to life or bodily function? How? (Chest pain, USA, CT, pneumonia, PE, COPD, DKA, ARF, appy, cholecystitis, CVA, Diverticulitis, Homicidal, Suicidal, threat to staff... and all critical care pts) @ -yes - Lab Data Result diagrams: 10/08/22 12:50 10/08/22 12:50 Lab Results 10/08/22 10/08/22 10/08/22 Range/Units 12:50 12:50 12:50 WBC 13.5 H (3.8-10.6) k/uL RBC 3.61 L (3.80-5.40) m/uL Hgb 12.4 (11.4-16.0) gm/dL Hct 36.0 (34.0-46.0) % MCV 99.7 (80.0-100.0) fL MCH 34.2 (25.0-35.0) pg MCHC 34.4 (31.0-37.0) g/dL RDW 12.5 (11.5-15.5) % Plt Count 229 (150-450) k/uL MPV 9.0 Neutrophils % 84 % Lymphocytes % 12 % Monocytes % 2 % Eosinophils % 1 % Basophils % 0 % Neutrophils # 11.3 H (1.3-7.7) k/uL Lymphocytes # 1.6 (1.0-4.8) k/uL Monocytes # 0.3 (0-1.0) k/uL Eosinophils # 0.1 (0-0.7) k/uL Basophils # 0.0 (0-0.2) k/uL PT 10.0 (9.0-12.0) sec INR 0.9 (<1.2) APTT 19.7 L (22.0-30.0) sec Sodium (137-145) mmol/L Potassium (3.5-5.1) mmol/L Chloride (98-107) mmol/L Carbon Dioxide (22-30) mmol/L Anion Gap mmol/L BUN (7-17) mg/dL Creatinine (0.52-1.04) mg/dL Est GFR (CKD-EPI)AfAm (>60 ml/min/1.73 sqM) Est GFR (CKD-EPI)NonAf (>60 ml/min/1.73 sqM) Glucose (74-99) mg/dL Calcium (8.4-10.2) mg/dL Total Bilirubin (0.2-1.3) mg/dL AST (14-36) U/L ALT (4-34) U/L Alkaline Phosphatase (38-126) U/L Total Protein (6.3-8.2) g/dL Albumin (3.5-5.0) g/dL Stool Occult Blood Positive H (Negative) 10/08/22 Range/Units 12:50 WBC (3.8-10.6) k/uL RBC (3.80-5.40) m/uL Hgb (11.4-16.0) gm/dL Hct (34.0-46.0) % MCV (80.0-100.0) fL MCH (25.0-35.0) pg MCHC (31.0-37.0) g/dL RDW (11.5-15.5) % Plt Count (150-450) k/uL MPV Neutrophils % % Lymphocytes % % Monocytes % % Eosinophils % % Basophils % % Neutrophils # (1.3-7.7) k/uL Lymphocytes # (1.0-4.8) k/uL Monocytes # (0-1.0) k/uL Eosinophils # (0-0.7) k/uL Basophils # (0-0.2) k/uL PT (9.0-12.0) sec INR (<1.2) APTT (22.0-30.0) sec Sodium 142 (137-145) mmol/L Potassium 4.5 (3.5-5.1) mmol/L Chloride 108 H (98-107) mmol/L Carbon Dioxide 25 (22-30) mmol/L Anion Gap 9 mmol/L BUN 57 H (7-17) mg/dL Creatinine 0.63 (0.52-1.04) mg/dL Est GFR (CKD-EPI)AfAm >90 (>60 ml/min/1.73 sqM) Est GFR (CKD-EPI)NonAf >90 (>60 ml/min/1.73 sqM) Glucose 142 H (74-99) mg/dL Calcium 8.9 (8.4-10.2) mg/dL Total Bilirubin 0.7 (0.2-1.3) mg/dL AST 28 (14-36) U/L ALT 23 (4-34) U/L Alkaline Phosphatase 101 (38-126) U/L Total Protein 6.1 L (6.3-8.2) g/dL Albumin 3.6 (3.5-5.0) g/dL Stool Occult Blood (Negative) Disposition Clinical Impression: GI bleed Disposition: ADMITTED IP TO THIS [facility] Condition: Serious Referrals: Mir Thorpe DO [Primary Care Provider] - 1-2 days Decision Time: 15:08
[2022-10-08 13:03] LABS: Basophils % (A) 0 %; Eosinophils # (A) 0.1 k/uL (0-0.7); Eosinophils % (A) 1 %; HGB 12.4 gm/dL (11.4-16.0); Lymphocytes # (A) 1.6 k/uL (1.0-4.8); Lymphocytes % (A) 12 %; MCH 34.2 pg (25.0-35.0); MCHC 34.4 g/dL (31.0-37.0); MCV 99.7 fL (80.0-100.0); Monocytes # (A) 0.3 k/uL (0-1.0); Monocytes % (A) 2 %; Neutrophils # (A) 11.3 k/uL (1.3-7.7); Neutrophils % (A) 84 %; Platelet Count 229 k/uL (150-450); RBC 3.61 m/uL (3.80-5.40); RDW 12.5 % (11.5-15.5); WBC 13.5 k/uL (3.8-10.6)
[2022-10-08 13:07] LABS: ALT 23 U/L (4-34); AST 28 U/L (14-36); African American GFR (CKD) >90 (>60 ml/min/1.73 sqM); Albumin 3.6 g/dL (3.5-5.0); Alkaline Phosphatase 101 U/L (38-126); Anion Gap 9 mmol/L; Blood Urea Nitrogen 57 mg/dL (7-17); Calcium 8.9 mg/dL (8.4-10.2); Carbon Dioxide 25 mmol/L (22-30); Chloride 108 mmol/L (98-107); Glucose 142 mg/dL (74-99); Non-African American GFR(CKD) >90 (>60 ml/min/1.73 sqM); Potassium 4.5 mmol/L (3.5-5.1); Sodium 142 mmol/L (137-145); Total Bilirubin 0.7 mg/dL (0.2-1.3); Total Protein 6.1 g/dL (6.3-8.2)
[2022-10-08 13:11] LABS: INR 0.9 (<1.2)
[2022-10-08 13:28] LABS: Partial Thromboplastin Time 19.7 sec (22.0-30.0)
--- NOTE | 2022-10-08 14:33 | CT ---
EXAMINATION TYPE: CT abdomen pelvis w con CT DLP: 1028.6 mGycm, Automated exposure control for dose reduction was used. DATE OF EXAM: 10/08/2022 1:47 PM COMPARISON: None CLINICAL INDICATION:Female, 67 years old with history of gi bleed, lower abdominal pain; Low abdomina l pain and black tarry stools. TECHNIQUE: Axial CT of the abdomen and pelvis. Sagittal and coronal reformats were created on a [employer] workstation. Contrast used:100ml mL of Isovue 300 with IV Contrast, (none if empty) Oral contrast used: without Oral Contrast (none if empty) FINDINGS: LOWER CHEST: Unremarkable ABDOMEN LIVER: Scattered probable hepatic cysts. GALLBLADDER AND BILE DUCTS: Unremarkable. PANCREAS: Unremarkable. SPLEEN: Unremarkable. ADRENAL GLANDS: Unremarkable. KIDNEYS AND URETERS: No evidence of hydronephrosis or renal calculus. The ureters are unremarkable. PELVIS BLADDER: Unremarkable REPRODUCTIVE: Unremarkable. ABDOMEN & PELVIS STOMACH AND BOWEL: No evidence of bowel obstruction. High density stool seen predominantly in the cec um and ascending colon. The appendix is normal. PERITONEUM/RETROPERITONEUM: No evidence of pneumoperitoneum or free fluid. VASCULATURE: Pelvic phleboliths are present MUSCULOSKELETAL: No acute osseous abnormalities. Mild disc degeneration changes are present throughou t the thoracolumbar spine. Moderate degeneration changes of the hips. LYMPH NODES: No gross evidence for lymphadenopathy. SOFT TISSUE/ABDOMINAL WALL: Unremarkable IMPRESSION: High density stool within the large bowel including the cecum and ascending colon. While this could r epresent regular stool given the history of GI bleed it is favored represent admixture of blood produ cts. Consider nuclear medicine tagged red blood cell scan for localization of source of hemorrhage.
[2022-10-08] MEDS ORDERED: NALOXONE 0.4 MG/ML 1 ML VIAL IV PRN (14:50)
[2022-10-08] MEDS ORDERED: HYDROmorphone 1 MG/ML 1 ML SYRINGE IVP PRN (15:13)
[2022-10-08] MEDS ORDERED: ACETAMINOPHEN TAB 325 MG TAB PO PRN (15:13)
[2022-10-08] MEDS ORDERED: ONDANSETRON 4 MG/2 ML VIAL IVP PRN (15:13)
[2022-10-08] MEDS: SODIUM CHLORIDE 0.9% 1,000 ML IV SCH (15:30)
[2022-10-08] MEDS: PANTOPRAZOLE 40 MG/10 ML VIAL IVP SCH (20:19)
[2022-10-08 22:57] VITALS: RESP 18
[2022-10-08] MEDS: oxyCODONE-APAP 5-325MG 1 EACH TAB PO PRN (23:46)
[2022-10-09] MEDS: SODIUM CHLORIDE 0.9% 1,000 ML IV SCH (05:55)
--- NOTE | 2022-10-09 07:54 | P.CONS ---
History of Present Illness - Reason for Consult Consult date: 10/09/22 GI bleed Requesting physician: Easton Day - Chief Complaint Bloody bowel movements - History of Present Illness This is a pleasant 67-year-old female with a past medical history including hypertension and breast cancer that presented to the emergency department after having several dark bloody bowel movements yesterday. Patient states she woke up in the morning she got up to go the bathroom she felt dizzy she was laid back down. She then got up and had bloody bowel movement which she states was dark maroon color and black. She denies any previous history of a GI bleed. She denies any history of peptic ulcer disease, no NSAID use for anticoagulation. Last colonoscopy was approximately 10-15 years ago however patient has been doing a: GERD every 3 years which has been normal. Admitting labs WBC 13.5 hemoglobin 12.4 hematocrit 36 platelet count 229,000 and her 0.9 sodium 142 potassium 4.5 BUN 57 creatinine 0.6 total bilirubin 0.7 AST 28 ALT 23 alkaline phosphatase 101 occult stool positive. The patient states she was having a little bit of cramping but no real significant abdominal pain. No nausea or vomiting associated with bowel movements. Patient states she is feeling tired and weak. No repeat labs yet this morning. Review of Systems REVIEW OF SYSTEMS: CARDIOPULMONARY: No chest pain or shortness of breath. Gastrointestinal: No abdominal pain. No nausea or vomiting. No hematemesis, coffee-ground emesis. Maroon and black bowel movements. Patient states she had 5 or 6 yesterday. One small one this morning. GENITOURINARY: No dysuria or hematuria. MUSCULOSKELETAL: Reports normal range of motion SKIN: No rashes. No jaundice. ENDOCRINE: No chills, fevers. No excessive weight gain or loss. No polydipsia or polyuria. PSYCHIATRIC: Unremarkable. NEUROLOGY: No change in mental status. Denies dizziness, headache. ENT: Vision unremarkable. CONSTITUTIONAL: No recent weight loss. No fever, chills, night sweats. Past Medical History Past Medical History: Cancer, Hyperlipidemia, Hypertension, Osteoarthritis (OA) Additional Past Medical History / Comment(s): left breast CA History of Any Multi-Drug Resistant Organisms: None Reported Past Surgical History: Breast Surgery, Orthopedic Surgery, Tubal Ligation Additional Past Surgical History / Comment(s): left breast lumpectomy, left foot surgery Past Anesthesia/Blood Transfusion Reactions: No Reported Reaction Past Psychological History: Anxiety Smoking Status: Former smoker Past Alcohol Use History: Rare Past Drug Use History: None Reported - Past Family History Father Family Medical History: COPD Mother Family Medical History: COPD Medications and Allergies Home Medications Medication Instructions Recorded Confirmed Type Calcium Carbonate [Calcium] 1,200 mg PO DAILY 09/24/14 10/08/22 History Multivitamins, Thera [Theragran] 1 tab PO DAILY 09/24/14 10/08/22 History [place]-3 Fatty Acids/Fish Oil [Fish 1 cap PO DAILY 09/24/14 10/08/22 History Oil 1,000 mg Softgel] amLODIPine [Norvasc] 5 mg PO DAILY 09/24/14 10/08/22 History Atorvastatin [Lipitor] 40 mg PO HS 10/08/22 10/08/22 History Baclofen 10 mg PO HS PRN 10/08/22 10/08/22 History Cetirizine HCl 10 mg PO DAILY 10/08/22 10/08/22 History Cholecalciferol [Vitamin D3 (25 50 mcg PO DAILY 10/08/22 10/08/22 History Mcg = 1000 Iu)] Clobetasol Propionate [Temovate 1 applic TOPICAL BID PRN 10/08/22 10/08/22 History 0.05% Oint] Fluticasone Furoate [Flonase 2 spray EA NOSTRIL DAILY PRN 10/08/22 10/08/22 History Sensimist] HYDROcodone/APAP 10-325MG [[place] 1 tab PO BID PRN 10/08/22 10/08/22 History 10-325] Nabumetone [Relafen] 750 mg PO BID PRN 10/08/22 10/08/22 History Allergies Allergy/AdvReac Type Severity Reaction Status Date / Time sulfamethoxazole Allergy Rash/Hives Verified 10/08/22 14:14 [From Bactrim] trimethoprim [From Bactrim] Allergy Rash/Hives Verified 10/08/22 14:14 Physical Exam Vitals: Vital Signs Temp Pulse Pulse Resp BP BP Pulse Ox 10/09/22 04:00 102 H 18 132/80 100 10/09/22 02:00 95 18 10/09/22 00:00 95 18 136/74 97 10/08/22 20:00 98 18 130/76 98 10/08/22 18:00 98.5 F 102 H 16 145/77 98 10/08/22 15:20 120 H 17 124/74 98 10/08/22 14:15 106 H 17 128/77 98 10/08/22 12:56 122 H 17 148/87 98 10/08/22 12:39 97.4 F L 144 H 15 148/87 96 Intake and Output 10/08/22 10/09/22 10/09/22 22:59 06:59 14:59 Other: Voiding Method Toilet Toilet # Voids 1 # Bowel Movements 2 Weight 83.007 kg General appearance: The patient is alert, oriented, appears in no acute distre ss. HET: Head is normocephalic and atraumatic. Conjunctiva pink. Sclera anicteric. Neck: Supple without lymphadenopathy. Trachea midline. Heart: S1 S2. Regular rate and rhythm. Lungs: Clear to auscultation. Abdomen: Soft, nontender, nondistended with bowel sounds. No guarding or rigidity. Skin: No rashes. No jaundice. Extremities: Normal skin color and turgor. No pedal edema. Neurological: No focal deficits. Alert and oriented x3. Results CBC & Chem 7: 10/08/22 12:50 10/08/22 12:50 Labs: Abnormal Lab Results - Last 24 Hours (Table) 10/08/22 10/08/22 10/08/22 Range/Units 12:50 12:50 12:50 WBC 13.5 H (3.8-10.6) k/uL RBC 3.61 L (3.80-5.40) m/uL Neutrophils # 11.3 H (1.3-7.7) k/uL APTT 19.7 L (22.0-30.0) sec Chloride (98-107) mmol/L BUN (7-17) mg/dL Glucose (74-99) mg/dL Total Protein (6.3-8.2) g/dL Stool Occult Blood Positive H (Negative) 10/08/22 Range/Units 12:50 WBC (3.8-10.6) k/uL RBC (3.80-5.40) m/uL Neutrophils # (1.3-7.7) k/uL APTT (22.0-30.0) sec Chloride 108 H (98-107) mmol/L BUN 57 H (7-17) mg/dL Glucose 142 H (74-99) mg/dL Total Protein 6.1 L (6.3-8.2) g/dL Stool Occult Blood (Negative) Comments: CT abdomen and pelvis with contrast reported high density stool within the large bowel including the cecum and ascending colon. While this could represent regular stool given the history of GI bleed it is favored to represent a mixture of blood products. Consider nuclear medicine tagged RBC scan for localization of source of hemorrhage. Assessment and Plan (1) GI bleed Narrative/Plan: 67-year-old female presenting with GI bleed. Multiple maroon and black stools. No history of previous GI bleed. Hemoglobin stable on admission however BUN quite elevated at 57 consistent with likely upper GI bleed. Denies any history of peptic ulcer disease, NSAID use, or anticoagulation. Unclear etiology at this time. Need to consider possible etiology peptic ulcer disease, gastritis, esophagitis, AVM, or other possible etiologies. Will proceed with upper endoscopy. Current Visit: Yes Status: Acute Code(s): K92.2 - GASTROINTESTINAL HEMORRHAGE, UNSPECIFIED SNOMED Code(s): 89747770 Plan: 1. Continue symptomatic and supportive care 2. Stat CBC, transfuse for hemoglobin less than 7 3. Keep nothing by mouth 4. Avoid NSAIDs 5. Protonix 40 mg twice a day 6. Plan for upper endoscopy today Thank you for this consultation, we will sign off after upper endoscopy. Please see procedure note for further recommendations. Dr. Bessy Bruce I agree with the dictator's note, documented as a scribe by Teresa Lester.
[2022-10-09 08:15] LABS: Basophils % (A) 0 %; Eosinophils # (A) 0.1 k/uL (0-0.7); Eosinophils % (A) 1 %; HCT 31.5 % (34.0-46.0); HGB 10.8 gm/dL (11.4-16.0); Lymphocytes % (A) 23 %; MCH 34.2 pg (25.0-35.0); MCHC 34.3 g/dL (31.0-37.0); MCV 99.8 fL (80.0-100.0); Mean Platelet Volume 8.5; Monocytes # (A) 0.4 k/uL (0-1.0); Monocytes % (A) 5 %; Neutrophils # (A) 6.1 k/uL (1.3-7.7); Neutrophils % (A) 70 %; Platelet Count 185 k/uL (150-450); RBC 3.16 m/uL (3.80-5.40); RDW 12.4 % (11.5-15.5); WBC 8.7 k/uL (3.8-10.6)
[2022-10-09 08:26] LABS: African American GFR (CKD) >90 (>60 ml/min/1.73 sqM); Anion Gap 4 mmol/L; Blood Urea Nitrogen 38 mg/dL (7-17); Calcium 8.6 mg/dL (8.4-10.2); Carbon Dioxide 25 mmol/L (22-30); Chloride 110 mmol/L (98-107); Glucose 117 mg/dL (74-99); Non-African American GFR(CKD) >90 (>60 ml/min/1.73 sqM); Potassium 3.7 mmol/L (3.5-5.1); Sodium 139 mmol/L (137-145)
[2022-10-09] MEDS: PANTOPRAZOLE 40 MG/10 ML VIAL IVP SCH ×2 (08:55→19:56)
[2022-10-09] MEDS ORDERED: BACLOFEN 10 MG TAB PO PRN (09:19)
[2022-10-09] MEDS ORDERED: FLUTICASONE 50MCG/SPRAY NASAL 16GM EA NOSTRIL PRN (09:19)
[2022-10-09] MEDS ORDERED: MELOXICAM 7.5 MG TAB PO PRN (09:19)
[2022-10-09] MEDS ORDERED: LIDOCAINE 2% INJ 20 MG/ML (2 ML VIAL) ONE (10:04)
[2022-10-09] MEDS ORDERED: PROPOFOL 10 MG/ML 20 ML VIAL IV ONE (10:04)
[2022-10-09] MEDS ORDERED: LACTATED RINGERS 1,000 ML IV ONE (10:05)
--- NOTE | 2022-10-09 10:19 | P.PCN ---
Date of Procedure: 10/09/22 Procedure(s) Performed: BRIEF HISTORY: Patient is a 67-year-old, pleasant, white female admitted hospital with multiple episodes of black tarry stools that started since yesterday. Initial hemoglobin was 13 and dropped to 10.7 g/dL. She is scheduled for an upper endoscopy today for clinical suspicion of acute upper GI bleed. PROCEDURE PERFORMED: Esophagogastroduodenoscopy with biopsy. PREOPERATIVE DIAGNOSIS: Acute upper GI bleed. IV sedation per anesthesia. PROCEDURE: After informed consent was obtained, the patient was brought into the endoscopy unit. IV sedation was administered by Anesthesia under continuous monitoring. Initially the Olympus GIF-140 video endoscope was inserted into the mouth. Esophagus intubated without any difficulty. It was gradually advanced into the stomach and duodenum and carefully examined. The bulb and the second part of the duodenum appeared normal. The scope at this time was withdrawn to the stomach, adequately insufflated with air, and upon careful examination, mucosa of the antrum, had some gastritis noted and there was a 1 cm deep antral linear ulcer with a brownish pigmentation consistent with recent bleed but no active bleeding. Status post Endo Clip placement. Biopsies were done from the antrum to rule out H. pylori infection. Mucosa of the body, cardia and the fundus appeared normal. The scope was then withdrawn into the esophagus. The GE junction was located at 39 cm from the incisors. The esophagus appeared normal. There were no erosions or ulcerations seen and the patient tolerated the procedure well. IMPRESSION: 1. Antral 1 cm linear antral ulcer with a brownish pigmented spot but no active bleeding status post Endo Clip placement as described above. 2. Antral gastritis. RECOMMENDATIONS: The findings of this examination were discussed with the patient . She'll be continuing Protonix 40 mg twice daily. Start him on a clear liquid diet and advance as tolerated. If her hemoglobin remains stable tomorrow she can be discharged home with outpatient follow-up in 2 weeks. She was advised to avoid NSAIDs..
--- NOTE | 2022-10-09 13:18 | P.HPIM ---
History of Present Illness H&P Date: 10/09/22 Chief Complaint: Blood in stool * 67-year-old lady with past medical history significant for hypertension, osteoarthritis, history of anxiety presented to the emergency department with complaints of blood in stool. Patient states he had multiple bowel movements with bright red blood per rectum as well as black tarry stools. Patient also complained of lower abdominal pain. This was associated with nausea however no vomiting. Patient decided to present to the emergency for further evaluation. * Workup initiated in the ER included CBC which showed hemoglobin of 12. Fecal occult blood test was obtained which was positive. Basic metabolic panel was obtained which showed normal sodium and creatinine. Consultation was obtained from GI and patient was started on IV Protonix and admitted to medical floor for further management REVIEW OF SYSTEMS: Nausea, abdominal pain, blood in stool CONSTITUTIONAL: No fever, no malaise, no fatigue. HEENT: No recent visual problems or hearing problems. Denied any sore throat. CARDIOVASCULAR: No chest pain, orthopnea, PND, no palpitations, no syncope. PULMONARY: No shortness of breath, no cough, no hemoptysis. GASTROINTESTINAL: No diarrhea, no vomiting, NEUROLOGICAL: No headaches, no weakness, no numbness. HEMATOLOGICAL: Denies any bleeding or petechiae. GENITOURINARY: Denies any burning micturition, frequency, or urgency. MUSCULOSKELETAL/RHEUMATOLOGICAL: Denies any joint pain, swelling, or any muscle pain. ENDOCRINE: Denies any polyuria or polydipsia. PHYSICAL EXAMINATION: GENERAL: The patient is alert and oriented x3, not in any acute distress. Well developed, well nourished. HEENT: Pupils are round and equally reacting to light. EOMI. No scleral icterus. No conjunctival pallor. Normocephalic, atraumatic. No pharyngeal erythema. No thyromegaly. CARDIOVASCULAR: S1 and S2 present. No murmurs, rubs, or gallops. PULMONARY: Chest is clear to auscultation, no wheezing or crackles. ABDOMEN: Soft, tender on palpation MUSCULOSKELETAL: No joint swelling or deformity. EXTREMITIES: No cyanosis, clubbing, or pedal edema. NEUROLOGICAL: Gross neurological examination did not reveal any focal deficits. SKIN: No rashes. Past Medical History Past Medical History: Cancer, Hyperlipidemia, Hypertension, Osteoarthritis (OA) Additional Past Medical History / Comment(s): left breast CA History of Any Multi-Drug Resistant Organisms: None Reported Past Surgical History: Breast Surgery, Orthopedic Surgery, Tubal Ligation Additional Past Surgical History / Comment(s): left breast lumpectomy, left foot surgery Past Anesthesia/Blood Transfusion Reactions: No Reported Reaction Past Psychological History: Anxiety Smoking Status: Former smoker Past Alcohol Use History: Rare Past Drug Use History: None Reported - Past Family History Father Family Medical History: COPD Mother Family Medical History: COPD Medications and Allergies Home Medications Medication Instructions Recorded Confirmed Type Calcium Carbonate [Calcium] 1,200 mg PO DAILY 09/24/14 10/08/22 History Multivitamins, Thera [Theragran] 1 tab PO DAILY 09/24/14 10/08/22 History [place]-3 Fatty Acids/Fish Oil [Fish 1 cap PO DAILY 09/24/14 10/08/22 History Oil 1,000 mg Softgel] amLODIPine [Norvasc] 5 mg PO DAILY 09/24/14 10/08/22 History Atorvastatin [Lipitor] 40 mg PO HS 10/08/22 10/08/22 History Baclofen 10 mg PO HS PRN 10/08/22 10/08/22 History Cetirizine HCl 10 mg PO DAILY 10/08/22 10/08/22 History Cholecalciferol [Vitamin D3 (25 50 mcg PO DAILY 10/08/22 10/08/22 History Mcg = 1000 Iu)] Clobetasol Propionate [Temovate 1 applic TOPICAL BID PRN 10/08/22 10/08/22 History 0.05% Oint] Fluticasone Furoate [Flonase 2 spray EA NOSTRIL DAILY PRN 10/08/22 10/08/22 History Sensimist] HYDROcodone/APAP 10-325MG [[place] 1 tab PO BID PRN 10/08/22 10/08/22 History 10-325] Nabumetone [Relafen] 750 mg PO BID PRN 10/08/22 10/08/22 History Allergies Allergy/AdvReac Type Severity Reaction Status Date / Time sulfamethoxazole Allergy Rash/Hives Verified 10/08/22 14:14 [From Bactrim] trimethoprim [From Bactrim] Allergy Rash/Hives Verified 10/08/22 14:14 Physical Exam Vitals: Vital Signs Temp Pulse Pulse Resp BP BP Pulse Ox 10/09/22 12:00 71 18 130/75 100 10/09/22 08:00 97.9 F 95 18 129/65 99 10/09/22 04:00 102 H 18 132/80 100 10/09/22 02:00 95 18 10/09/22 00:00 95 18 136/74 97 10/08/22 20:00 98 18 130/76 98 10/08/22 18:00 98.5 F 102 H 16 145/77 98 10/08/22 15:20 120 H 17 124/74 98 10/08/22 14:15 106 H 17 128/77 98 Intake and Output 10/08/22 10/09/22 10/09/22 22:59 06:59 14:59 Intake Total 300 Balance 300 Intake: IV 300 Other: Voiding Method Toilet Toilet # Voids 1 # Bowel Movements 2 2 Weight 83.007 kg Results CBC & Chem 7: 10/09/22 07:34 10/09/22 07:34 Labs: Abnormal Lab Results - Last 24 Hours (Table) 10/08/22 10/09/22 10/09/22 Range/Units 12:50 07:34 07:34 RBC 3.16 L (3.80-5.40) m/uL Hgb 10.8 L (11.4-16.0) gm/dL Hct 31.5 L (34.0-46.0) % APTT 19.7 L (22.0-30.0) sec Chloride 110 H (98-107) mmol/L BUN 38 H (7-17) mg/dL Glucose 117 H (74-99) mg/dL Thrombosis Risk Factor Assmnt - DVT/VTE Prophylaxis DVT/VTE Prophylaxis: Mechanical Prophylaxis ordered, Low risk, early ambulation encouraged - Choose All That Apply Each Risk Factor Represents 2 Points: Age 61-74 years Other congenital or acquired thrombophilia - If yes, enter type in comment: No Thrombosis Risk Factor Assessment Total Risk Factor Score: 2 Thrombosis Risk Factor Assessment Level: Low Risk Assessment and Plan Assessment: * Acute gastrointestinal bleed * Acute blood loss anemia * Hypertension * Dyslipidemia * Osteoarthritis * Gastroenterology consulted, patient is status was EGD which showed Antral 1 cm linear antral ulcer with a brownish pigmented spot but no active bleeding status post Endo Clip placement as described above. Antral gastritis. * Continue to monitor H&H, continue patient on IV Protonix advance diet as tolerated * In regards to hypertension continue amlodipine, * Use Tylenol as needed for pain, and cyst discontinued * CODE STATUS is full code * On SCDs for DVT prophylaxis
[2022-10-09 18:33] LABS: HCT 29.7 % (34.0-46.0); HGB 10.2 gm/dL (11.4-16.0); MCH 34.2 pg (25.0-35.0); MCHC 34.5 g/dL (31.0-37.0); MCV 99.1 fL (80.0-100.0); Mean Platelet Volume 8.9; Platelet Count 186 k/uL (150-450); RDW 12.5 % (11.5-15.5); WBC 6.7 k/uL (3.8-10.6)
[2022-10-09] MEDS ORDERED: ATORVASTATIN 40 MG TAB PO SCH (21:00)
[2022-10-09] MEDS: oxyCODONE-APAP 5-325MG 1 EACH TAB PO PRN (23:36)
[2022-10-10 08:15] LABS: HCT 29.5 % (34.0-46.0); HGB 10.4 gm/dL (11.4-16.0); MCH 34.7 pg (25.0-35.0); MCHC 35.2 g/dL (31.0-37.0); MCV 98.7 fL (80.0-100.0); Mean Platelet Volume 8.6; Platelet Count 185 k/uL (150-450); RBC 2.99 m/uL (3.80-5.40); RDW 12.4 % (11.5-15.5); WBC 6.6 k/uL (3.8-10.6)
[2022-10-10] MEDS: oxyCODONE-APAP 5-325MG 1 EACH TAB PO PRN (08:24)
[2022-10-10] MEDS: PANTOPRAZOLE 40 MG/10 ML VIAL IVP SCH (08:24)
[2022-10-10 08:28] VITALS: TEMP 98.4
[2022-10-10 08:33] LABS: African American GFR (CKD) >90 (>60 ml/min/1.73 sqM); Anion Gap 4 mmol/L; Blood Urea Nitrogen 22 mg/dL (7-17); Calcium 8.6 mg/dL (8.4-10.2); Carbon Dioxide 28 mmol/L (22-30); Chloride 108 mmol/L (98-107); Glucose 105 mg/dL (74-99); Non-African American GFR(CKD) >90 (>60 ml/min/1.73 sqM); Potassium 3.6 mmol/L (3.5-5.1); Sodium 140 mmol/L (137-145)
[2022-10-10] MEDS ORDERED: CHOLECALCIFEROL 25 MCG (1000 IU) TABLET PO SCH (09:00)
[2022-10-10] MEDS ORDERED: CALCIUM CARBONATE 500 MG CHEWABLE PO SCH (09:00)
[2022-10-10] MEDS ORDERED: LORATADINE 10 MG TAB PO SCH (09:00)
[2022-10-10] MEDS ORDERED: amLODIPine 5 MG TAB PO SCH (09:00)
[2022-10-10 12:07] VITALS: BP 116/75; PULSE 95
--- NOTE | 2022-10-10 12:55 | P.DS ---
Providers Date of admission: 10/08/22 14:51 Expected date of discharge: 10/10/22 Attending physician: Jose J Napoles Consults: 10/08/22 14:50 Consult Physician Routine Consulting Provider: Sondra Bruce Consult Reason/Comments: GI bleed Do you want consulting provider notified?: Yes Primary care physician: [facility] Hospital Course: * 67-year-old lady with past medical history significant for hypertension, osteoarthritis, history of anxiety presented to the emergency department with complaints of blood in stool. Patient states he had multiple bowel movements with bright red blood per rectum as well as black tarry stools. Patient also complained of lower abdominal pain. This was associated with nausea however no vomiting. Patient decided to present to the emergency for further evaluation. * Workup initiated in the ER included CBC which showed hemoglobin of 12. Fecal occult blood test was obtained which was positive. Basic metabolic panel was obtained which showed normal sodium and creatinine. Consultation was obtained from GI and patient was started on IV Protonix and admitted to medical floor for further management * Gastroenterology consulted, patient is status was EGD which showed Antral 1 cm linear antral ulcer with a brownish pigmented spot but no active bleeding status post Endo Clip placement as described above. Antral gastritis. * Patient had serial CBC monitor which remained stable, diet was advanced as tolerated. * Patient discharged on oral Protonix * Ansaid discontinued * Follow-up with gastroenterology and PCP PHYSICAL EXAMINATION: GENERAL: The patient is alert and oriented x3, not in any acute distress. Well developed, well nourished. HEENT: Pupils are round and equally reacting to light. EOMI. No scleral icterus. No conjunctival pallor. Normocephalic, atraumatic. No pharyngeal erythema. No thyromegaly. CARDIOVASCULAR: S1 and S2 present. No murmurs, rubs, or gallops. PULMONARY: Chest is clear to auscultation, no wheezing or crackles. ABDOMEN: Soft, nontender, nondistended, normoactive bowel sounds. No palpable organomegaly. MUSCULOSKELETAL: No joint swelling or deformity. EXTREMITIES: No cyanosis, clubbing, or pedal edema. NEUROLOGICAL: Gross neurological examination did not reveal any focal deficits. SKIN: No rashes. Assessment: * Acute gastrointestinal bleed * Acute blood loss anemia * Hypertension * Dyslipidemia * Osteoarthritis * Gastroenterology consulted, patient is status was EGD which showed Antral 1 cm linear antral ulcer with a brownish pigmented spot but no active bleeding status post Endo Clip placement as described above. Antral gastritis. Discharged on oral Protonix * Hemoglobin remained stable inpatient, outpatient follow-up with PCP for CBC check * In regards to hypertension continue amlodipine, * Use Tylenol as needed for pain, Ansaid discontinued Patient Condition at Discharge: Fair Plan - Discharge Summary Discharge Rx Participant: Yes New Discharge Prescriptions: New Pantoprazole [Protonix] 40 mg PO DAILY #30 tab Continue Multivitamins, Thera [Multivitamin (formulary)] 1 tab PO DAILY amLODIPine [Norvasc] 5 mg PO DAILY [place]-3 Fatty Acids/Fish Oil [Fish Oil 1,000 mg Softgel] 1 cap PO DAILY Calcium Carbonate [Calcium] 1,200 mg PO DAILY Baclofen 10 mg PO HS PRN PRN Reason: Muscle Pain Fluticasone Furoate [Flonase Sensimist] 2 spray EA NOSTRIL DAILY PRN PRN Reason: Allergy Symptoms Cetirizine HCl 10 mg PO DAILY Atorvastatin [Lipitor] 40 mg PO HS HYDROcodone/APAP 10-325MG [[place] 10-325] 1 tab PO BID PRN PRN Reason: Pain Clobetasol Propionate [Temovate 0.05% Oint] 1 applic TOPICAL BID PRN PRN Reason: FLARE UPS Cholecalciferol [Vitamin D3 (25 Mcg = 1000 Iu)] 50 mcg PO DAILY Discontinued Nabumetone [Relafen] 750 mg PO BID PRN PRN Reason: Pain Discharge Medication List Calcium Carbonate [Calcium] 1,200 mg PO DAILY 09/24/14 [History] Multivitamins, Thera [Multivitamin (formulary)] 1 tab PO DAILY 09/24/14 [History] [place]-3 Fatty Acids/Fish Oil [Fish Oil 1,000 mg Softgel] 1 cap PO DAILY 09/24/14 [History] amLODIPine [Norvasc] 5 mg PO DAILY 09/24/14 [History] Atorvastatin [Lipitor] 40 mg PO HS 10/08/22 [History] Baclofen 10 mg PO HS PRN 10/08/22 [History] Cetirizine HCl 10 mg PO DAILY 10/08/22 [History] Cholecalciferol [Vitamin D3 (25 Mcg = 1000 Iu)] 50 mcg PO DAILY 10/08/22 [History] Clobetasol Propionate [Temovate 0.05% Oint] 1 applic TOPICAL BID PRN 10/08/22 [History] Fluticasone Furoate [Flonase Sensimist] 2 spray EA NOSTRIL DAILY PRN 10/08/22 [History] HYDROcodone/APAP 10-325MG [[place] 10-325] 1 tab PO BID PRN 10/08/22 [History] Pantoprazole [Protonix] 40 mg PO DAILY #30 tab 10/10/22 [Rx] Follow up Appointment(s)/Referral(s): Mir Thorpe DO [Primary Care Provider] - 1-2 days Sondra Bruce MD [STAFF PHYSICIAN] - 10 Days Activity/Diet/Wound Care/Special Instructions: Continue with low-salt diet Follow-up with PCP for CBC check in 1 week Follow-up with gastroenterology for pathology biopsy results Discharge Disposition: HOME SELF-CARE
== END 2022-10-10 15:02 | disposition home or self-care (01) | DRG 378 ==
LOC: EC 12:38 → 3SCARD 14:51
PROVIDERS: ADMIT Hospitalist; ATTEND Hospitalist
PROC: 0W3P8ZZ Control Bleeding in Gastrointestinal Tract, Via Natural or Artificial Opening Endoscopic (ICD-10-PCS; principal; 2022-10-09 08:35)
PROC: 0DB78ZX Excision of Stomach, Pylorus, Via Natural or Artificial Opening Endoscopic, Diagnostic (ICD-10-PCS; 2022-10-09 08:35)
DX: K25.4 Chronic or unspecified gastric ulcer with hemorrhage (principal); D62 Acute posthemorrhagic anemia; K29.71 Gastritis, unspecified, with bleeding; I10 Essential (primary) hypertension; M19.90 Unspecified osteoarthritis, unspecified site; E78.5 Hyperlipidemia, unspecified; F41.9 Anxiety disorder, unspecified; K21.9 Gastro-esophageal reflux disease without esophagitis; Z87.19 Personal history of other diseases of the digestive system; Z79.1 Long term (current) use of non-steroidal anti-inflammatories (NSAID); Z79.899 Other long term (current) drug therapy; Z85.3 Personal history of malignant neoplasm of breast; Z87.891 Personal history of nicotine dependence; Z88.2 Allergy status to sulfonamides; Z88.1 Allergy status to other antibiotic agents; Z98.51 Tubal ligation status
CPT/HCPCS: 36415; 43239; 43255; 74177; 80048; 80053; 82272; 85025; 85027; 85610; 85730; 93005; 96374; 99285

== ENCOUNTER → 2023-05-24 | Outpatient (CLI) | payer MEDICARE, OTHER ==
--- NOTE | 2023-05-25 13:34 | MM ---
Reason for Exam: Screening (asymptomatic). Last screening mammogram was performed 12 month(s) ago. Patient History: Menarche at age 14. First Full-Term at age 19. Hysterectomy at age 63. Postmenopausal. Breast cancer, age 58. Estrogen for 1 month starting at age 56. 03/17/2005, Excisional Biopsy on the Right side. 01/03/2016, Benign Cyst Aspiration on the left side. Benign Core Biopsy. Malignant Core Biopsy. 10/26/2013, Malignant Core Biopsy on the left side. 10/26/2013, Malignant Core Biopsy on the left side. 10/12/2011, Benign Cyst Aspiration on the right side. 10/12/2011, Benign Core Biopsy on the right side. 2013, Radiation Therapy on the left side. 11/09/2013, MG discontinued needle loc LT on the left side. Prior Study Comparison: 05/15/2020 Bilateral Diagnostic Mammogram, [facility]. 05/16/2021 Bilateral Diagnostic Mammogram, [facility]. 05/18/2022 Bilateral MG 3D diag mammo w/cad YUDY, [facility]. Tissue Density: There are scattered areas of fibroglandular density. Findings: Analyzed By CAD. Postsurgical changes to left breast with surgical clips in place and scarring. Right breast biopsy clip. There is no suspicious group of microcalcifications or new suspicious mass. Overall Assessment: Benign, BI-RAD 2 Management: Screening Mammogram of both breasts in [address] [facility] will attempt to contact patient to return for supplemental views and ultrasound if indicated. Patient should continue monthly self-breast exams. A clinical breast exam by your physician is recommended on an annual basis. This exam should not preclude additional follow-up of suspicious palpable abnormalities. Note on Sabina scores and lifetime risk: 1. A Sabina score greater than 3% is considered moderate risk. If this is the case, consider specialist referral to assess eligibility for a risk reducing agent. 2. If overall lifetime risk for the development of breast cancer is 20% or higher, the patient may qualify for future screening with alternating mammogram and breast MRI. Electronically signed and approved by: Sergei Crowell DO
== END | disposition home or self-care (01) ==
LOC: RADMAMWWP 08:04
PROVIDERS: ATTEND Internal Medicine Hematology & Oncology
DX: Z12.31 Encounter for screening mammogram for malignant neoplasm of breast (principal); C50.919 Malignant neoplasm of unspecified site of unspecified female breast; M85.9 Disorder of bone density and structure, unspecified; E78.5 Hyperlipidemia, unspecified; I10 Essential (primary) hypertension; Z71.3 Dietary counseling and surveillance; Z78.0 Asymptomatic menopausal state
CPT/HCPCS: 77063; 77067

== ENCOUNTER → 2023-06-25 | Outpatient (CLI) | payer MEDICARE, OTHER ==
--- NOTE | 2023-06-25 18:28 | CTL ---
EXAMINATION TYPE: CT Low Dose Lung DATE OF EXAM ORDERED: 06/25/2023 HISTORY: 68-year-old female Z12.2, lung cancer screening. Former smoker, 44 pack-year history. Person al history of breast cancer. CT DLP: 112.[address] CTDI: 2.8 mGy Automated exposure control for dose reduction was used. SCREENING VISIT: Baseline COMPARISON: None TECHNIQUE: Low dose computed tomography scan was performed through the chest with coronal and sagitta l reconstructions. CT DIAGNOSTIC QUALITY: Satisfactory FINDINGS: Heart normal size with trace pericardial fluid. Aorta normal caliber with bovine configuration to the aortic arch. Postsurgical change left breast. No thoracic lymphadenopathy by CT size criteria. Borderline to mildly enlarged caliber main right and left pulmonary arteries measuring up to 2.6 cm m ay reflect underlying pulmonary arterial hypertension. Mild biapical pleural-parenchymal scarring. Additional subpleural reticular change anterior left midl lori likely post radiation therapy change. No consolidation or pleural effusion. 5 mm pulmonary nodule posterior left base, axial image 282. 6 mm lateral left basilar pulmonary nodule, image 241. Tiny calcified granuloma posterior right upper lobe, axial image 44. Tiny 2 mm right lower lobe pulmonary nodule, axial image 15. Visualized upper abdomen shows an 8 mm cyst in the left hepatic dome. Bones: Mild anterior spondylosis T11-T12. IMPRESSION: 1. LungRADS Category 3 (probably benign, 1-2% chance of malignancy). A 6 mm left basilar pulmonary no dule on baseline screening. 2. Possible underlying pulmonary arterial hypertension. 3. Status post left breast lumpectomy and postradiation therapy change. CT LUNG RAD AND CT CHEST RECOMMENDATION: Lung-Rad 3 Probably Benign: 6 month follow-up LDCT. S Modifier (other clinically significant findings): None
== END | disposition home or self-care (01) ==
LOC: RADCTMAIN 10:37
PROVIDERS: ATTEND Internal Medicine Hematology & Oncology
DX: Z12.2 Encounter for screening for malignant neoplasm of respiratory organs (principal); R91.1 Solitary pulmonary nodule; Z87.891 Personal history of nicotine dependence; Z98.890 Other specified postprocedural states; Z92.3 Personal history of irradiation
CPT/HCPCS: 71271

== ENCOUNTER → 2023-12-21 | Outpatient (CLI) | payer MEDICARE ==
--- NOTE | 2023-12-21 11:26 | CT ---
EXAMINATION TYPE: CT chest wo con CT DLP: 263.7 mGycm, Automated exposure control for dose reduction was used. DATE OF EXAM: 12/21/2023 11:04 AM COMPARISON: CT low-dose lung 06/25/2023 CLINICAL INDICATION:Female, 68 years old with history of C50.919 MALIGNANT NEOPLASM OF UNSP SITE OF U NSPECI; PHH, f/u nodules TECHNIQUE: Multiple axial images were obtained through the chest without IV contrast. Lack of IV or o ral contrast limits evaluation of solid and hollow organ viscera. . Coronal and sagittal reformats re viewed. FINDINGS: LUNGS/ PLEURA: No pleural effusion, pneumothorax, or focal consolidation. Mild biapical pleural pare nchymal scarring. Similar subpleural reticular change anterior left midline likely post radiation the rapy change. Multiple tiny calcified granuloma posterior right upper lobe (series 4, image 12). Stabl e tiny 2 mm right lower lobe pulmonary nodule (series 4, image 48). Stable nodular density within the lateral left base measuring 6 mm (series 4, image 54). Stable 5 mm nodular density within the letterpress printing machinist ior left base (series 4, image 62). No new or larger pulmonary nodules. AIRWAY: Patent and unremarkable.. HEART: Size within normal limits. No pericardial effusion. MEDIASTINUM: No gross evidence of adenopathy. VASCULATURE: No aortic aneurysm. Bovine configuration to the aortic arch. Mild atherosclerotic calci fication of the aorta and its branches. MUSCULOSKELETAL: No acute osseous abnormalities SOFT TISSUES/LYMPH NODES: Post surgical changes of the left breast appears similar. LOWER NECK: No significant findings. UPPER ABDOMEN: Stable few subcentimeter hypodense foci which likely represent cysts. IMPRESSION: 1. Stable few pulmonary nodules measuring up to 6 mm. No new or enlarging pulmonary nodules. Follow- up CT low-dose lung in 1 year is recommended. 2. Stable status post left breast lumpectomy and postradiation therapy change. [facility], , 12/21/2023 11:23 AM
== END | disposition home or self-care (01) ==
LOC: RADCTMAIN 10:37
PROVIDERS: ATTEND Internal Medicine Hematology & Oncology
DX: C50.919 Malignant neoplasm of unspecified site of unspecified female breast
CPT/HCPCS: 71250

== ENCOUNTER 2024-03-07 07:28 | Day surgery (SDC) | payer MEDICARE ==
[~2024-03-07 07:28] MED LIST: LIDOCAINE 1% (10MG/ML) FOR IV START INTRADERMA PRN
[2024-03-07] MEDS: LACTATED RINGERS 1,000 ML IV SCH (07:59)
[2024-03-07 08:01] VITALS: TEMP 97
[2024-03-07] MEDS: IV FLUID CONTINUATION 1,000 ML IV ONE ×2 (08:03→08:31)
[2024-03-07] MEDS ORDERED: PROPOFOL 10 MG/ML 20 ML VIAL IV ONE (08:37)
--- NOTE | 2024-03-07 08:55 | P.PCN ---
Date of Procedure: 03/07/24 Procedure(s) Performed: BRIEF HISTORY: Patient is a 69-year-old pleasant white female scheduled for an elective colonoscopy as a part of painful colon cancer/positive Cologuard PROCEDURE PERFORMED: Colonoscopy biopsy and snare polypectomy. PREOPERATIVE DIAGNOSIS: Screening for colon cancer/positive Cologuard. IV sedation per Anesthesia. PROCEDURE: After informed consent was obtained, the patient, was brought into the endoscopy unit. IV sedation was administered by Anesthesia under continuous monitoring. Digital rectal examination was normal. Initially the Olympus CF-160 flexible video colonoscope was then inserted in the rectum, gradually advanced into the cecum without any difficulty. Careful examination was performed as the scope was gradually being withdrawn. Ileocecal valve and the appendiceal orifice were visualized and appeared normal. Prep was excellent. Mucosa of the cecum 3 mm polyp that was removed by cold biopsy. In the hepatic flexure there was a 1 cm broad-based polyp removed by hot snare polypectomy. Rest of the, ascending colon, transverse colon, descending colon, sigmoid colon, and rectum appeared normal. Scattered sigmoid diverticulosis. Retroflexion was performed in the rectum and no lesions were seen. The patient tolerated the procedure well. IMPRESSION: 3 mm cecal polyp status post cold biopsy 1 cm hepatic flexure polyp status post hot snare polypectomy Scattered sigmoid diverticulosis RECOMMENDATIONS: Findings of this examination were discussed with the patient as well as her family.. She was advised to follow-up the biopsy results. If the biopsy was adenoma she can have repeat colonoscopy in 3 years.
[2024-03-07 09:15] VITALS: BP 126/73; PULSE 80; RESP 18
== END 2024-03-07 09:33 | disposition home or self-care (01) ==
LOC: ORWHC2ENDO 07:28
PROVIDERS: ATTEND Internal Medicine Gastroenterology
DX: Z12.11 Encounter for screening for malignant neoplasm of colon (principal); D12.3 Benign neoplasm of transverse colon; K63.5 Polyp of colon; K57.30 Diverticulosis of large intestine without perforation or abscess without bleeding; E78.5 Hyperlipidemia, unspecified; I10 Essential (primary) hypertension; F41.9 Anxiety disorder, unspecified; M19.90 Unspecified osteoarthritis, unspecified site; F17.290 Nicotine dependence, other tobacco product, uncomplicated; Z79.899 Other long term (current) drug therapy; Z85.3 Personal history of malignant neoplasm of breast; Z88.1 Allergy status to other antibiotic agents; Z88.2 Allergy status to sulfonamides
CPT/HCPCS: 45380; 45385; J2704; 88305

== ENCOUNTER → 2024-03-13 | Outpatient (CLI) | payer MEDICARE ==
[~2024-03-13] MED LIST changes: -LIDOCAINE 1% (10MG/ML) FOR IV START INTRADERMA PRN; +SODIUM CHLORIDE 0.9% 250 ML in EMPTY BAG 1 BAG IV PRN; +SODIUM CHLORIDE 0.9% 500 ML 500 ML in EMPTY BAG 1 BAG IV PRN
[2024-03-13 10:33] VITALS: RESP 16; TEMP 98
[2024-03-13 10:54] LABS: Basophils % (A) 0 %; Eosinophils # (A) 0.2 k/uL (0-0.7); Eosinophils % (A) 3 %; HCT 46.1 % (34.0-46.0); HGB 15.3 gm/dL (11.4-16.0); Lymphocytes # (A) 2.4 k/uL (1.0-4.8); Lymphocytes % (A) 33 %; MCH 33.1 pg (25.0-35.0); MCHC 33.2 g/dL (31.0-37.0); MCV 99.7 fL (80.0-100.0); Mean Platelet Volume 7.6; Monocytes # (A) 0.4 k/uL (0-1.0); Monocytes % (A) 5 %; Neutrophils # (A) 4.3 k/uL (1.3-7.7); Neutrophils % (A) 58 %; Platelet Count 266 k/uL (150-450); RBC 4.63 m/uL (3.80-5.40); RDW 11.8 % (11.5-15.5); WBC 7.4 k/uL (3.8-10.6)
[2024-03-13 11:23] VITALS: BP 133/86; PULSE 101
== END ==
LOC: PROCWHC3 10:17
PROVIDERS: ATTEND Internal Medicine Hematology & Oncology
DX: E83.119 Hemochromatosis, unspecified (principal)
CPT/HCPCS: 36415; 85025; 99195

== ENCOUNTER → 2024-05-24 | Outpatient (CLI) | payer MEDICARE ==
--- NOTE | 2024-05-24 10:34 | MM ---
Reason for Exam: Screening (asymptomatic). Last screening mammogram was performed 12 month(s) ago. Patient History: Menarche at age 14. First Full-Term at age 19. Hysterectomy at age 63. Postmenopausal. Breast cancer, left, age 58. Estrogen for 1 month starting at age 56. 03/17/2005, Excisional Biopsy on the Right side. 01/03/2016, Benign Cyst Aspiration on the left side. Benign Core Biopsy. Malignant Core Biopsy. 10/26/2013, Malignant Core Biopsy on the left side. 10/26/2013, Malignant Core Biopsy on the left side. 10/12/2011, Benign Cyst Aspiration on the right side. 10/12/2011, Benign Core Biopsy on the right side. 2013, Radiation Therapy on the left side. 11/09/2013, MG discontinued needle loc LT on the left side. Prior Study Comparison: 05/16/2021 Bilateral Diagnostic Mammogram, [facility]. 05/18/2022 Bilateral MG 3D diag mammo w/cad YUDY, [facility]. 05/24/2023 Bilateral MG 3D screening mammo w/cad, [facility]. Tissue Density: There are scattered areas of fibroglandular density. Findings: Analyzed By CAD. Persistent marked diminished size and distortion with surgical clips in the left breast from prior treatment is stable. Mammotome biopsy clip left breast is redemonstrated. Mammotome biopsy clip anteriorly right breast is again seen are loosely grouped round calcifications similar to priors. There is no suspicious new group of microcalcifications or new suspicious mass in either breast. Overall Assessment: Benign, BI-RAD 2 Management: Screening Mammogram of both breasts in 1 year. . Patient should continue monthly self-breast exams. A clinical breast exam by your physician is recommended on an annual basis. This exam should not preclude additional follow-up of suspicious palpable abnormalities. Note on Sabina scores and lifetime risk: 1. A Sabina score greater than 3% is considered moderate risk. If this is the case, consider specialist referral to assess eligibility for a risk reducing agent. 2. If overall lifetime risk for the development of breast cancer is 20% or higher, the patient may qualify for future screening with alternating mammogram and breast MRI. [facility], , 05/24/2024 10:30 AM. Electronically signed and approved by: Dhaval Marcelino M.D.
== END | disposition home or self-care (01) ==
LOC: RADMAMWWP 09:57
PROVIDERS: ATTEND Internal Medicine Hematology & Oncology
DX: Z12.31 Encounter for screening mammogram for malignant neoplasm of breast (principal); R92.323 Mammographic fibroglandular density, bilateral breasts; R92.1 Mammographic calcification found on diagnostic imaging of breast; Z78.0 Asymptomatic menopausal state; Z85.3 Personal history of malignant neoplasm of breast
CPT/HCPCS: 77063; 77067

== ENCOUNTER 2024-06-12 13:07 | Observation (INO) | payer MEDICARE ==
--- NOTE | 2024-06-12 13:31 | ED ---
General Adult HPI - General Chief complaint: Arrhythmia/Palpitations Stated complaint: elevated heart rate Time Seen by Provider: 06/12/24 13:21 Source: patient, RN notes reviewed Mode of arrival: ambulatory Limitations: no limitations - History of Present Illness Initial comments: Patient is a 69-year-old female present to the emergency department with concerns for palpitations. Onset of symptoms was this morning. Patient feels like her heart is racing. No history of similar symptoms previously. No previous history of dysrhythmia. Patient question if it was just anxiety. No chest pain. No dyspnea. Patient was at [facility] to have her blood drawn and was sent to the emergency department. - Related Data Home Medications Medication Instructions Recorded Confirmed amLODIPine [Norvasc] 5 mg PO HS 09/24/14 06/12/24 Atorvastatin [Lipitor] 40 mg PO HS 10/08/22 06/12/24 Baclofen 10 mg PO HS PRN 10/08/22 06/12/24 Cholecalciferol [Vitamin D3 (25 50 mcg PO HS 10/08/22 06/12/24 Mcg = 1000 Iu)] Calcium Carb, Citrate/Vit D3 1 tab PO HS 03/03/24 06/12/24 [Citracal-D3 ER 600 mg-12.5 Mcg] HYDROcodone/APAP 5-325MG [[place] 1 tab PO Q6H 03/03/24 06/12/24 5-325] Orion Oil 1,000mg 1,000 mg PO HS 06/12/24 06/12/24 Allergies Allergy/AdvReac Type Severity Reaction Status Date / Time sulfamethoxazole Allergy Rash/Hives Verified 06/12/24 14:00 [From Bactrim] trimethoprim [From Bactrim] Allergy Rash/Hives Verified 06/12/24 14:00 Review of Systems ROS Statement: Those systems with pertinent positive or pertinent negative responses have been documented in the HPI. ROS Other: All systems not noted in ROS Statement are negative. Constitutional: Denies: fever Eyes: Denies: eye pain ENT: Denies: ear pain Respiratory: Denies: cough, dyspnea Cardiovascular: Reports: as per HPI, palpitations. Denies: chest pain Endocrine: Denies: fatigue Gastrointestinal: Denies: abdominal pain Musculoskeletal: Denies: back pain Past Medical History Past Medical History: Cancer, Hyperlipidemia, Hypertension, Osteoarthritis (OA) Additional Past Medical History / Comment(s): left breast CA. RADIATION. History of Any Multi-Drug Resistant Organisms: None Reported Past Surgical History: Breast Surgery, Hysterectomy, Orthopedic Surgery, Tubal Ligation Additional Past Surgical History / Comment(s): left breast lumpectomy, left foot surgery. PARTIAL HYSTERECTOMY. Past Anesthesia/Blood Transfusion Reactions: No Reported Reaction Past Psychological History: Anxiety Smoking Status: Former smoker Past Alcohol Use History: None Reported Past Drug Use History: None Reported - Past Family History Father Family Medical History: COPD Mother Family Medical History: COPD General Exam Limitations: no limitations General appearance: alert, in no apparent distress Head exam: Present: normocephalic Eye exam: Present: normal appearance Neck exam: Present: normal inspection Respiratory exam: Present: normal lung sounds bilaterally Cardiovascular Exam: Present: tachycardia Expanded Peripheral pulses: 2+: Radial (R), Radial (L) GI/Abdominal exam: Present: soft. Absent: tenderness Extremities exam: Present: normal inspection. Absent: pedal edema, calf tenderness Neurological exam: Present: alert Psychiatric exam: Present: normal affect, normal mood Skin exam: Present: normal color Course Vital Signs 06/12/24 06/12/24 06/12/24 13:22 13:40 16:18 Temperature 97.7 F Pulse Rate 150 H 109 H Pulse Rate [ 120 H Supine Radio Division Officer] Respiratory 18 20 Rate Blood Pressure 163/108 132/86 O2 Sat by Pulse 98 97 Oximetry EKG Findings - EKG Results: EKG: interpreted by ERMD (Narrow complex tachycardia with frequent PVCs. There is apparent P waves. Nonspecific T waves.), normal axis, normal QRS EKG shows: tachycardia Medical Decision Making - Medical Decision Making EKG #2 interpreted by myself at 1342 shows sinus tach 117, normal axis. Normal QRS. Nonspecific T waves. EKG #3 also interpreted by myself shows sinus rhythm with a rate of 98. Normal intervals. Normal axis. Normal QRS. Nonspecific T waves. Was pt. sent in by a medical professional or institution (, PA, CURTAIN INSPECTOR, urgent care, hospital, or skilled nursing...) When possible be specific @ -Patient was sent by phlebotomy lab secondary to concern for tachycardia Did you speak to anyone other than the patient for history (EMS, parent, family, police, friend...)? What history was obtained from this source @ -No Did you review nursing and triage notes (agree or disagree)? Why? @ -I reviewed and agree with nursing and triage notes Were old charts reviewed (outside hosp., previous admission, EMS record, old EKG, old radiological studies, urgent care reports/EKG's, skilled nursing records)? Report findings @ -No old charts were reviewed Differential Diagnosis (chest pain, altered mental status, abdominal pain women, abdominal pain men, vaginal bleeding, weakness, fever, dyspnea, syncope, headache, dizziness, GI bleed, back pain, seizure, CVA, palpatations, mental health, musculoskeletal)? @ -Differential Palpitations Ventricular arrhythmias, atrial arrhythmias, myocardial infarction, anemia, thyrotoxicosis, electrolyte imbalance, hypokalemia, pulmonary embolism, pul monary disease, drugs, alcohol, anxiety, stress.... This is not meant to be an all-inclusive list. EKG interpreted by me (3pts min.). @ -As above X-rays interpreted by me (1pt min.). @ -Chest x-ray shows chronic changes without acute abnormality CT interpreted by me (1pt min.). @ -None done U/S interpreted by me (1pt. min.). @ -None done What testing was considered but not performed or refused? (CT, X-rays, U/S, labs)? Why? @ -None What meds were considered but not given or refused? Why? @ -None Did you discuss the management of the patient with other professionals (professionals i.e. , PA, CURTAIN INSPECTOR, lab, RT, psych nurse, protective services social worker, obiee obia solution architect, teacher, minesweeping officer, case planner)? Give summary @ -Case was discussed with Dr. Napoles who will admit covering Dr. Thorpe Was smoking cessation discussed for >3mins.? @ -No Was critical care preformed (if so, how long)? @ -No Were there social determinants of health that impacted care today? How? (Homelessness, low income, unemployed, alcoholism, drug addiction, transportation, low edu. Level, literacy, decrease access to med. care, long term, rehab)? @ -No Was there de-escalation of care discussed even if they declined (Discuss DNR or withdrawal of care, Hospice)? DNR status @ -No What co-morbidities impacted this encounter? (DM, HTN, Smoking, COPD, CAD, Cancer, CVA, ARF, Chemo, Hep., AIDS, mental health diagnosis, sleep apnea, morbid obesity)? @ -None Was patient admitted / discharged? Hospital course, mention meds given and route, prescriptions, significant lab abnormalities, going to OR and other pertinent info. @ -Patient presents with tachycardia, 150 in triage. Heart rate slowed to around 100 after several hours. With ambulation heart rate increases up to 140. Etiology unclear. Patient will be admitted with cardiac consult. Admission orders written. Patient updated. Undiagnosed new problem with uncertain prognosis? @ -Undiagnosed etiology of tachycardia Drug Therapy requiring intensive monitoring for toxicity (Heparin, Nitro, Insulin, Cardizem)? @ -No Were any procedures done? @ -No Diagnosis/symptom? @ -Tachycardia Acute, or Chronic, or Acute on Chronic? @ -Acute Uncomplicated (without systemic symptoms) or Complicated (systemic symptoms)? @ -Default Side effects of treatment? @ -No Exacerbation, Progression, or Severe Exacerbation? @ -No Poses a threat to life or bodily function? How? (Chest pain, USA, ID, pneumonia, PE, COPD, DKA, ARF, appy, cholecystitis, CVA, Diverticulitis, Homicidal, Suicidal, threat to staff... and all critical care pts) @ -Threat to cardiac function - Lab Data Result diagrams: 06/12/24 13:35 06/12/24 13:35 Lab Results 06/12/24 06/12/24 06/12/24 Range/Units 13:35 13:35 13:35 WBC 10.8 H (3.8-10.6) k/uL RBC 4.87 (3.80-5.40) m/uL Hgb 15.4 (11.4-16.0) gm/dL Hct 47.5 H (34.0-46.0) % MCV 97.5 (80.0-100.0) fL MCH 31.6 (25.0-35.0) pg MCHC 32.4 (31.0-37.0) g/dL RDW 12.6 (11.5-15.5) % Plt Count 250 (150-450) k/uL MPV 8.4 Neutrophils % 70 % Lymphocytes % 23 % Monocytes % 4 % Eosinophils % 2 % Basophils % 1 % Neutrophils # 7.6 (1.3-7.7) k/uL Lymphocytes # 2.5 (1.0-4.8) k/uL Monocytes # 0.4 (0-1.0) k/uL Eosinophils # 0.2 (0-0.7) k/uL Basophils # 0.1 (0-0.2) k/uL PT 9.9 L (10.0-12.5) sec INR 0.9 (<1.2) APTT 22.7 (22.0-30.0) sec D-Dimer (<0.60) mg/L FEU Sodium 137 (137-145) mmol/L Potassium 3.8 (3.5-5.1) mmol/L Chloride 101 (98-107) mmol/L Carbon Dioxide 28 (22-30) mmol/L Anion Gap 8 mmol/L BUN 18 H (7-17) mg/dL Creatinine 0.80 (0.52-1.04) mg/dL Est GFR (CKD-EPI)AfAm 87 (>60 ml/min/1.73 sqM) Est GFR (CKD-EPI)NonAf 76 (>60 ml/min/1.73 sqM) Glucose 192 H (74-99) mg/dL Calcium 10.0 (8.4-10.2) mg/dL Magnesium 2.2 (1.6-2.3) mg/dL Total Bilirubin 0.8 (0.2-1.3) mg/dL AST 30 (14-36) U/L ALT 20 (4-34) U/L Alkaline Phosphatase 116 (38-126) U/L Troponin I (0.000-0.034) ng/mL Total Protein 7.4 (6.3-8.2) g/dL Albumin 4.5 (3.5-5.0) g/dL TSH 0.767 (0.465-4.680) mIU/L Free T4 1.15 (0.78-2.19) ng/dL 06/12/24 06/12/24 Range/Units 13:35 13:35 WBC (3.8-10.6) k/uL RBC (3.80-5.40) m/uL Hgb (11.4-16.0) gm/dL Hct (34.0-46.0) % MCV (80.0-100.0) fL MCH (25.0-35.0) pg MCHC (31.0-37.0) g/dL RDW (11.5-15.5) % Plt Count (150-450) k/uL MPV Neutrophils % % Lymphocytes % % Monocytes % % Eosinophils % % Basophils % % Neutrophils # (1.3-7.7) k/uL Lymphocytes # (1.0-4.8) k/uL Monocytes # (0-1.0) k/uL Eosinophils # (0-0.7) k/uL Basophils # (0-0.2) k/uL PT (10.0-12.5) sec INR (<1.2) APTT (22.0-30.0) sec D-Dimer 0.59 (<0.60) mg/L FEU Sodium (137-145) mmol/L Potassium (3.5-5.1) mmol/L Chloride (98-107) mmol/L Carbon Dioxide (22-30) mmol/L Anion Gap mmol/L BUN (7-17) mg/dL Creatinine (0.52-1.04) mg/dL Est GFR (CKD-EPI)AfAm (>60 ml/min/1.73 sqM) Est GFR (CKD-EPI)NonAf (>60 ml/min/1.73 sqM) Glucose (74-99) mg/dL Calcium (8.4-10.2) mg/dL Magnesium (1.6-2.3) mg/dL Total Bilirubin (0.2-1.3) mg/dL AST (14-36) U/L ALT (4-34) U/L Alkaline Phosphatase (38-126) U/L Troponin I <0.012 (0.000-0.034) ng/mL Total Protein (6.3-8.2) g/dL Albumin (3.5-5.0) g/dL TSH (0.465-4.680) mIU/L Free T4 (0.78-2.19) ng/dL Disposition Clinical Impression: Tachycardia Disposition: ADMITTED IP TO THIS [facility] Is patient prescribed a controlled substance at d/c from ED?: No Referrals: Mir Thorpe DO [Primary Care Provider] - 1-2 days Time of Disposition: 16:45
[2024-06-12 13:45] LABS: Basophils # (A) 0.1 k/uL (0-0.2); Basophils % (A) 1 %; Eosinophils # (A) 0.2 k/uL (0-0.7); Eosinophils % (A) 2 %; HCT 47.5 % (34.0-46.0); HGB 15.4 gm/dL (11.4-16.0); Lymphocytes # (A) 2.5 k/uL (1.0-4.8); Lymphocytes % (A) 23 %; MCH 31.6 pg (25.0-35.0); MCHC 32.4 g/dL (31.0-37.0); MCV 97.5 fL (80.0-100.0); Mean Platelet Volume 8.4; Monocytes # (A) 0.4 k/uL (0-1.0); Monocytes % (A) 4 %; Neutrophils # (A) 7.6 k/uL (1.3-7.7); Neutrophils % (A) 70 %; Platelet Count 250 k/uL (150-450); RBC 4.87 m/uL (3.80-5.40); RDW 12.6 % (11.5-15.5); WBC 10.8 k/uL (3.8-10.6)
[2024-06-12 13:54] LABS: ALT 20 U/L (4-34); AST 30 U/L (14-36); African American GFR (CKD) 87 (>60 ml/min/1.73 sqM); Albumin 4.5 g/dL (3.5-5.0); Alkaline Phosphatase 116 U/L (38-126); Anion Gap 8 mmol/L; Blood Urea Nitrogen 18 mg/dL (7-17); Carbon Dioxide 28 mmol/L (22-30); Chloride 101 mmol/L (98-107); Glucose 192 mg/dL (74-99); Magnesium 2.2 mg/dL (1.6-2.3); Non-African American GFR(CKD) 76 (>60 ml/min/1.73 sqM); Potassium 3.8 mmol/L (3.5-5.1); Sodium 137 mmol/L (137-145); Total Bilirubin 0.8 mg/dL (0.2-1.3); Total Protein 7.4 g/dL (6.3-8.2)
[2024-06-12 14:04] LABS: INR 0.9 (<1.2); Partial Thromboplastin Time 22.7 sec (22.0-30.0); Prothrombin Time 9.9 sec (10.0-12.5)
--- NOTE | 2024-06-12 14:12 | XR ---
EXAMINATION TYPE: XR chest 2V DATE OF EXAM: 06/12/2024 CLINICAL INDICATION: Female, 69 years old with history of dysrhythmia, TECHNIQUE: Frontal and lateral views of the chest are obtained. COMPARISON: Chest CT December 21, 2023 FINDINGS: There is some chronic parenchymal change bilaterally redemonstrated without suspicious new focal air space opacity, pleural effusion, or pneumothorax seen. The cardiac silhouette size is sta ble and within normal limits. Diminished size left breast with surgical clips is redemonstrated. Th e osseous structures are intact. IMPRESSION: Chronic changes without acute cardiopulmonary process. [facility], , 06/12/2024 2:10 PM
[2024-06-12 14:58] LABS: T4, Free (Free Thyroxine) 1.15 ng/dL (0.78-2.19)
[2024-06-12] MEDS ORDERED: NALOXONE 0.4 MG/ML 1 ML VIAL IV PRN (16:45)
[2024-06-12] MEDS ORDERED: BACLOFEN 10 MG TAB PO PRN (16:46)
[2024-06-12] MEDS ORDERED: TEMAZEPAM 15 MG CAP PO PRN (17:11)
[2024-06-12] MEDS: HYDROcodone/APAP 5-325MG 1 EACH TAB PO SCH (18:15)
[2024-06-12] MEDS: SODIUM CHLORIDE 0.9% 1,000 ML IV SCH (18:17)
[2024-06-12] MEDS: amLODIPine 5 MG TAB PO SCH (20:14)
[2024-06-12] MEDS: CHOLECALCIFEROL 25 MCG (1000 IU) TABLET PO SCH (20:15)
[2024-06-12] MEDS: ATORVASTATIN 40 MG TAB PO SCH (20:15)
[2024-06-12] MEDS: HEPARIN SODIUM,PORCINE 5,000 UNIT/ML 1 ML VIAL SQ SCH (20:16)
[2024-06-12] MEDS: CALCIUM CARB-VIT D 500 MG-5 MCG TAB PO SCH (20:16)
[2024-06-12] MEDS ORDERED: SALMON OIL 1000 MG PO SCH (21:00)
--- NOTE | 2024-06-12 21:54 | HP ---
HISTORY AND PHYSICAL REASON FOR ADMISSION: Tachycardia. HISTORY OF PRESENT ILLNESS: This is a 69-year-old woman with a past history of hyperlipidemia, hypertension, who also had hemochromatosis recently diagnosed and Dr. Martell is recommending venesection. The patient, apparently, had 500 mL of blood removed today. Subsequently, the patient felt like the heart racing and palpitations. The EKG showed sinus tachycardia with the PACs and PVCs, and the patient admitted for further evaluation and treatment. There is no history of any fever, rigors, or chills. No chest pain or palpitation at this time. PAST MEDICAL HISTORY: Hypertension and hyperlipidemia. Rest of the history and rest of the chart is also reviewed. HOME MEDICATIONS: Reviewed and include Norvasc. Dose and rest of medications reviewed. ALLERGIES: Bactrim. FAMILY HISTORY: History of COPD in the family. SOCIAL HISTORY: Previous history of smoking. REVIEW OF SYSTEMS: Fourteen-point review of systems negative except as mentioned earlier. PHYSICAL EXAMINATION: VITAL SIGNS: Pulse 79 , PAC and PVC is present. Blood pressure 132/80, respirations 20. HEENT: Conjunctivae normal. NECK: No JVD. CARDIOVASCULAR: S1, S2. RESPIRATIONS: Breath sounds diminished at the bases. A few scattered rhonchi and no crackles. ABDOMEN: Soft, nontender. LEGS: No edema. NERVOUS SYSTEM: Nonfocal. LABORATORY DATA: INR 0.9. Glucose 192. WBC 10.8. ASSESSMENT: 1. Tachycardia sinus with premature atrial contractions and premature ventricular contractions, post venesection. 2. Hemochromatosis history. 3. Hypertension. 4. Hyperlipidemia. 5. History of degenerative joint disease. 6. History of left breast radiation. RECOMMENDATIONS: This is a 69-year-old woman, who presented with multiple complex medical issues. We will monitor the patient closely. I would recommend to continue with the current medications. We will continue with cautious IV fluids and EKG noted. I would also recommend a 2D echo with Doppler and Cardiology evaluation also. TSH is normal. Chest x-ray noted. Overall, prognosis is guarded because of multiple complex medical issues. Further recommendations to follow. See orders for details. If the blood pressure is elevated, I would recommend beta-blockers. MMODL / IJN: [id number] / [facility]
[2024-06-12] MEDS: ALPRAZolam 0.25 MG TAB PO PRN (23:40)
[2024-06-13] MEDS: PANTOPRAZOLE 40 MG TABLET PO SCH (05:27)
--- NOTE | 2024-06-13 07:22 | CA ---
Transthoracic Echo Report Name: Rachell Ascencio Age: 69 Gender: F : 1955 Exam Date: 06/12/2024 17:53 Exam Location: [facility] Ht (in): 68 Wt (lb): 166 Ordering Physician: Sarthak Martinez DO Attending/Referring Phys: Steel Post Installer Christine Cook RDCS Procedure CPT: Indications: tachycardia Cardiac Hx: Technical Quality: Fair Contrast 1: Total Dose (mL): Contrast 2: Total Dose (mL): MEASUREMENTS (Male / Female) Normal Values 2D ECHO LV Diastolic Diameter PLAX 4.5 cm 4.2 - 5.9 / 3.9 - 5.3 cm LV Systolic Diameter PLAX 3.1 cm IVS Diastolic Thickness 1.5 cm 0.6 - 1.0 / 0.6 - 0.9 cm LVPW Diastolic Thickness 1.4 cm 0.6 - 1.0 / 0.6 - 0.9 cm LV Relative Wall Thickness 0.7 RV Internal Dim ED PLAX 2.9 cm LA Systolic Diameter LX 3.7 cm 3.0 - 4.0 / 2.7 - 3.8 cm LV Diastolic Volume MOD BP 51.5 cm??? 67 - 155 / 56 - 104 cm??? LV Systolic Volume MOD BP 18.3 cm??? 22 - 58 / 19 - 49 cm??? LV Ejection Fraction MOD BP 64.5 % >= 55 % LV Cardiac Index MOD BP 1701.7 cm???/min???m??? LV Diastolic Volume MOD 4C 70.8 cm??? LV Systolic Volume MOD 4C 33.8 cm??? LV Ejection Fraction MOD 4C 52.3 % LV Cardiac Index MOD 4C 1898.3 cm???/min???m??? LV Diastolic Length 4C 7.4 cm LV Systolic Length 4C 6.1 cm LV Diastolic Volume MOD 2C 45.9 cm??? LV Systolic Volume MOD 2C 15.5 cm??? LV Ejection Fraction MOD 2C 66.3 % LV Cardiac Index MOD 2C 1559.4 cm???/min???m??? LV Diastolic Length 2C 6.8 cm LV Systolic Length 2C 5.8 cm M-MODE Aortic Root Diameter MM 3.5 cm DOPPLER AV Peak Velocity 154.0 cm/s AV Peak Gradient 9.5 mmHg AI Peak Velocity 238.5 cm/s AI Peak Gradient 22.8 mmHg AI Pressure Half Time 5400.9 ms Mitral E Point Velocity 72.4 cm/s Mitral A Point Velocity 101.5 cm/s Mitral E to A Ratio 0.7 MV Deceleration Time 266.0 ms MV E' Velocity 6.8 cm/s Mitral E to MV E' Ratio 10.7 TR Peak Velocity 199.9 cm/s TR Peak Gradient 16.0 mmHg Right Ventricular Systolic Press 26.0 mmHg FINDINGS Left Ventricle Left ventricular ejection fraction is estimated at 55-60 %. Moderately increased septal wall thickness. Moderately increased posterior wall thickness. No obvious regional wall motion abnormalities. Right Ventricle Normal right ventricular size and function. Right ventricular systolic pressure within normal limits. Right Atrium Normal right atrial size. No right atrial thrombus or mass seen. Left Atrium Normal left atrial size. No left atrial thrombus or mass present. Mitral Valve Structurally normal mitral valve. No evidence for mitral valve prolapse. No mitral stenosis. Trace mitral regurgitation. Aortic Valve Aortic valve not well visualized. No aortic stenosis. Mild aortic regurgitation. Tricuspid Valve Structurally normal tricuspid valve. Mild tricuspid regurgitation. Pulmonic Valve Pulmonic valve not well visualized. Pericardium No pericardial effusion. Aorta Normal size aortic root and proximal ascending aorta. CONCLUSIONS Normal biventricular systolic function Mild aortic regurgitation Mild mitral regurgitation No pericardial effusion Previewed by: Dr. Tyler Haddad MD (Electronically Signed) Final Date: 13 June 2024 07:21
[2024-06-13 08:23] VITALS: BP 131/74; PULSE 80; RESP 16; TEMP 98.3
[2024-06-13] MEDS: ACETAMINOPHEN TAB 325 MG TAB PO PRN (08:33)
[2024-06-13 08:43] LABS: ALT 16 U/L (8-44); AST 23 U/L (13-35); Albumin 3.9 g/dL (3.8-4.9); Albumin/Globulin Ratio 1.86 Ratio (1.60-3.17); Alkaline Phosphatase 111 U/L (41-126); Calcium 9.9 mg/dL (8.7-10.3); Carbon Dioxide 26.2 mmol/L (21.6-31.8); Chloride 107 mmol/L (96-109); Globulin 2.1 g/dL (1.6-3.3); Glucose 98 mg/dL (70-110); Sodium 143 mmol/L (135-145); Total Bilirubin 0.7 mg/dL (0.3-1.2)
[2024-06-13 08:49] LABS: Basophils # (A) 0.05 X 10*3/uL (0.00-0.10); Basophils % (A) 0.6 %; Eosinophils # (A) 0.29 X 10*3/uL (0.04-0.35); Eosinophils % (A) 3.3 %; HCT 44.2 % (37.2-46.3); HGB 14.5 g/dL (12.0-15.0); Lymphocytes # (A) 4.02 X 10*3/uL (0.90-5.00); Lymphocytes % (A) 45.8 %; MCH 32.4 pg (27.0-32.0); MCHC 32.8 g/dL (32.0-37.0); MCV 98.7 FL (80.0-97.0); Monocytes # (A) 0.67 X 10*3/uL (0.20-1.00); Monocytes % (A) 7.6 %; NRBC Per 100 WBC 0 X 10*3/uL (0.00-0.01); Neutrophils # (A) 3.72 X 10*3/uL (1.80-7.70); Neutrophils % (A) 42.5 %; Platelet Count 231 X 10*3/uL (140-440); RBC 4.48 X 10*6/uL (4.10-5.20); RDW 12.4 % (11.5-14.5); WBC 8.77 X 10*3/uL (4.50-10.00)
--- NOTE | 2024-06-13 10:09 | P.CRDCN ---
History of Present Illness History of present illness: HISTORY OF PRESENT ILLNESS: This is a 69-year-old female with a past medical history significant for hypertension and hyperlipidemia. Patient does not follow with a patient services representative. We have been asked to see the patient in consultation for tachycardia. Patient examined at the bedside. Patient states yesterday she was at [facility] for a procedure for her hemochromatosis when she was noted to be tachycardic. Patient reports having mild palpitations. She also believes that her anxiety was contributing to her heart rate being high. She denied having any chest pain or pressure. She denied having any shortness of breath. The patient heart rate is in the 120s this morning and she does feel little bit anxious. Her heart rate was in the 80s overnight. DIAGNOSTICS: - EKG reveals sinus tachycardia with PVCs. - Chest xray chronic changes without acute cardiopulmonary process - Laboratory data: WBC 10.8. Hemoglobin 15.4. Platelet count 250. D-dimer 0.59. Sodium 137. Potassium 3.8. BUN 18. Creatinine 0.80. Troponin negative x 3. TSH 0.767. Free T41.15. Free T43.40. - Current home cardiac medications include Lipitor 40 mg at night and amlodipine 5 mg at night. - Echocardiogram obtained this admission reveals ejection fraction 55 to 60%, no obvious regional wall motion abnormalities, mild aortic regurgitation, and mild mitral regurgitation - Cardiac catheterization history: Patient denies REVIEW OF SYSTEMS: At the time of my exam: CONSTITUTIONAL: Denies fever or chills. HEENT: Denies blurred vision, vision changes, or eye pain. Denies hemoptysis CARDIOVASCULAR: Denies chest pain. Denies orthopnea. Denies PND. Denies palpitations RESPIRATORY: Denies shortness of breath. GASTROINTESTINAL: Denies abdominal pain. Denies nausea or vomiting. HEMATOLOGIC: Denies bleeding disorders. GENITOURINARY: Denies any blood in urine. SKIN: Denies pruitis. Denies rash. PHYSICAL EXAM: VITAL SIGNS: Reviewed. GENERAL: Well-developed in no acute distress. HEENT: Head is normocephalic. Pupils are equal, round. Sclerae anicteric. Mucous membranes of the mouth are moist. Neck supple. No JVD or thyromegaly LUNGS: Respirations even and unlabored. Lungs essentially clear to auscultation bilaterally. HEART: Regular rate and rhythm. S1 and S2 heard. ABDOMEN: Soft. Nondistended. Nontender. EXTREMITIES: Normal range of motion. No clubbing or cyanosis. Peripheral pulse s intact. No lower extremity edema NEUROLOGIC: Awake and alert. Oriented x 3. ASSESSMENT: Palpitations Sinus tachycardia Hypertension Hyperlipidemia History of hemochromatosis PLAN: 2D echo obtained and reviewed TSH checked and within normal limits Patient will be discharged home today from a cardiac standpoint She is to follow-up in the office with Dr. Haddad Patient will receive 24-hour Holter monitor at her follow-up appointment with Dr. Haddad Further recommendations pending patient course Nurse practitioner note has been reviewed by physician. Signing provider agrees with the documented findings, assessment, and plan of care documented by HOG TRADER as a scribe. Past Medical History Past Medical History: Cancer, Hyperlipidemia, Hypertension, Osteoarthritis (OA) Additional Past Medical History / Comment(s): left breast CA. RADIATION. History of Any Multi-Drug Resistant Organisms: None Reported Past Surgical History: Breast Surgery, Hysterectomy, Orthopedic Surgery, Tubal Ligation Additional Past Surgical History / Comment(s): left breast lumpectomy, left foot surgery. PARTIAL HYSTERECTOMY. Past Anesthesia/Blood Transfusion Reactions: No Reported Reaction Past Psychological History: Anxiety Additional Psychological History / Comment(s): SITUATIONAL Smoking Status: Former smoker Past Alcohol Use History: None Reported Additional Past Alcohol Use History / Comment(s): stopped smoking 1 year ago, but uses E cigaretts now Past Drug Use History: None Reported - Past Family History Father Family Medical History: COPD Mother Family Medical History: COPD Medications and Allergies Home Medications Medication Instructions Recorded Confirmed Type amLODIPine [Norvasc] 5 mg PO HS 09/24/14 06/12/24 History Atorvastatin [Lipitor] 40 mg PO HS 10/08/22 06/12/24 History Baclofen 10 mg PO HS PRN 10/08/22 06/12/24 History Cholecalciferol [Vitamin D3 (25 50 mcg PO HS 10/08/22 06/12/24 History Mcg = 1000 Iu)] Calcium Carb, Citrate/Vit D3 1 tab PO HS 03/03/24 06/12/24 History [Citracal-D3 ER 600 mg-12.5 Mcg] HYDROcodone/APAP 5-325MG [[place] 1 tab PO Q6H 03/03/24 06/12/24 History 5-325] [place] Oil 1,000mg 1,000 mg PO HS 06/12/24 06/12/24 History Allergies Allergy/AdvReac Type Severity Reaction Status Date / Time sulfamethoxazole Allergy Rash/Hives Verified 06/12/24 14:00 [From Bactrim] trimethoprim [From Bactrim] Allergy Rash/Hives Verified 06/12/24 14:00 Physical Exam Vitals: Vital Signs Temp Pulse Pulse Resp BP BP Pulse Ox 06/13/24 01:12 98.1 F 87 15 118/66 96 06/12/24 21:33 97.8 F 100 15 154/90 95 06/12/24 20:37 98 F 81 18 128/76 98 06/12/24 19:44 97 15 125/87 97 06/12/24 18:13 98.1 F 99 18 133/75 96 06/12/24 16:18 109 H 20 132/86 97 06/12/24 13:40 120 H 06/12/24 13:22 97.7 F 150 H 18 163/108 98 Intake and Output 06/12/24 06/13/24 06/13/24 22:59 06:59 14:59 Other: Voiding Method Toilet Toilet # Voids 1 2 Weight 75.296 kg Results 06/13/24 05:17 06/13/24 05:17 Cardiac Enzymes 06/12/24 06/12/24 06/12/24 Range/Units 13:35 13:35 17:14 AST 30 (14-36) U/L Troponin I <0.012 <0.012 (0.000-0.034) ng/mL 06/12/24 Range/Units 20:07 AST (14-36) U/L Troponin I <0.012 (0.000-0.034) ng/mL Coagulation 06/12/24 Range/Units 13:35 PT 9.9 L (10.0-12.5) sec APTT 22.7 (22.0-30.0) sec CBC 06/12/24 Range/Units 13:35 WBC 10.8 H (3.8-10.6) k/uL RBC 4.87 (3.80-5.40) m/uL Hgb 15.4 (11.4-16.0) gm/dL Hct 47.5 H (34.0-46.0) % Plt Count 250 (150-450) k/uL Comprehensive Metabolic Panel 06/12/24 Range/Units 13:35 Sodium 137 (137-145) mmol/L Potassium 3.8 (3.5-5.1) mmol/L Chloride 101 (98-107) mmol/L Carbon Dioxide 28 (22-30) mmol/L BUN 18 H (7-17) mg/dL Creatinine 0.80 (0.52-1.04) mg/dL Glucose 192 H (74-99) mg/dL Calcium 10.0 (8.4-10.2) mg/dL AST 30 (14-36) U/L ALT 20 (4-34) U/L Alkaline Phosphatase 116 (38-126) U/L Total Protein 7.4 (6.3-8.2) g/dL Albumin 4.5 (3.5-5.0) g/dL Current Medications Generic Name Dose Route Start Last Admin Trade Name Freq PRN Reason Stop Dose Admin Acetaminophen 650 mg 06/12/24 16:45 Acetaminophen Tab 325 Mg Tab PO Q6HR PRN Mild Pain or Fever > 100.5 Hydrocodone Bitart/Acetaminophen 1 each 06/12/24 18:00 06/13/24 05:27 Hydrocodone/Apap 5-325mg 1 Each Tab PO 1 each Q6H INDIRA Administration Alprazolam 0.25 mg 06/12/24 17:11 06/12/24 23:40 Alprazolam 0.25 Mg Tab PO 0.25 mg TID PRN Administration Anxiety Amlodipine Besylate 5 mg 06/12/24 21:00 06/12/24 20:14 Amlodipine 5 Mg Tab PO 5 mg HS INDIRA Administration Atorvastatin Calcium 40 mg 06/12/24 21:00 06/12/24 20:15 Atorvastatin 40 Mg Tab PO 40 mg HS INDIRA Administration Baclofen 10 mg 06/12/24 16:46 Baclofen 10 Mg Tab PO HS PRN Muscle Pain Calcium Carbonate 1 each 06/12/24 21:00 06/12/24 20:16 Calcium Carb-Vit D 500 Mg-5 Mcg Tab PO 1 each HS INDIRA Administration Cholecalciferol 50 mcg 06/12/24 21:00 06/12/24 20:15 Cholecalciferol 25 Mcg (1000 Iu) Tablet PO 50 mcg HS INDIRA Administration Heparin Sodium (Porcine) 5,000 unit 06/12/24 21:00 06/12/24 20:16 Heparin Sodium,Porcine 5,000 Unit/Ml 1 Ml Vial SQ 5,000 unit Q12HR INDIRA Administration Sodium Chloride 1,000 mls @ 75 mls/hr 06/12/24 17:15 06/13/24 05:28 Saline 0.9% IV 75 mls/hr .[id number] INDIRA Administration Naloxone HCl 0.2 mg 06/12/24 16:45 Naloxone 0.4 Mg/Ml 1 Ml Vial IV Q2M PRN Opioid Reversal Pantoprazole Sodium 40 mg 06/13/24 07:30 06/13/24 05:27 Pantoprazole 40 Mg Tablet PO 40 mg [id number] INDIRA Administration Temazepam 15 mg 06/12/24 17:11 Temazepam 15 Mg Cap PO HS PRN Insomnia Intake and Output 06/12/24 06/13/24 06/13/24 22:59 06:59 14:59 Other: Voiding Method Toilet Toilet # Voids 1 2 Weight 75.296 kg 06/12/24 13:35 06/12/24 13:35
== END 2024-06-13 14:49 | disposition home or self-care (01) ==
LOC: EC 13:07 → 6NMEDSUR 16:46
PROVIDERS: ADMIT Hospitalist; ATTEND Hospitalist
DX: R00.0 Tachycardia, unspecified (principal); I49.3 Ventricular premature depolarization; I49.1 Atrial premature depolarization; I08.0 Rheumatic disorders of both mitral and aortic valves; E78.5 Hyperlipidemia, unspecified; I10 Essential (primary) hypertension; E83.119 Hemochromatosis, unspecified; M19.90 Unspecified osteoarthritis, unspecified site; F41.9 Anxiety disorder, unspecified; Z79.899 Other long term (current) drug therapy; Z79.891 Long term (current) use of opiate analgesic; Z88.1 Allergy status to other antibiotic agents; Z88.2 Allergy status to sulfonamides; Z87.891 Personal history of nicotine dependence; Z92.3 Personal history of irradiation; Z85.3 Personal history of malignant neoplasm of breast
CPT/HCPCS: 96372; 99285; 36415; 93005; 93306; 85379; 84439; 84481; 80053 ×2; 83735; 84443; 84484; 85025 ×2; 85610; 85730; 71046; G0378 ×2; J1644

== ENCOUNTER → 2024-06-12 | Outpatient (CLI) | payer MEDICARE ==
[2024-06-12 12:13] VITALS: TEMP 97.5
[2024-06-12 12:33] LABS: Basophils # (A) 0.1 k/uL (0-0.2); Basophils % (A) 1 %; Eosinophils # (A) 0.2 k/uL (0-0.7); Eosinophils % (A) 2 %; HCT 47.3 % (34.0-46.0); HGB 15.7 gm/dL (11.4-16.0); Lymphocytes # (A) 2.6 k/uL (1.0-4.8); Lymphocytes % (A) 30 %; MCH 32.2 pg (25.0-35.0); MCHC 33.3 g/dL (31.0-37.0); MCV 96.6 fL (80.0-100.0); Mean Platelet Volume 8.2; Monocytes # (A) 0.4 k/uL (0-1.0); Monocytes % (A) 5 %; Neutrophils # (A) 5.2 k/uL (1.3-7.7); Neutrophils % (A) 61 %; Platelet Count 254 k/uL (150-450); RBC 4.89 m/uL (3.80-5.40); RDW 12.2 % (11.5-15.5); WBC 8.6 k/uL (3.8-10.6)
[2024-06-12 13:09] VITALS: BP 128/94; PULSE 150; RESP 18
== END ==
LOC: PROCWHC3 11:49
PROVIDERS: ATTEND Internal Medicine Hematology & Oncology
DX: E83.119 Hemochromatosis, unspecified (principal)
CPT/HCPCS: 36415; 85025; 99195

== ENCOUNTER → 2024-09-11 | Outpatient (CLI) | payer MEDICARE ==
[2024-09-11 09:59] VITALS: RESP 16; TEMP 97.6
[2024-09-11 10:13] LABS: Basophils # (A) 0.09 10*3/uL (0.00-0.10); Basophils % (A) 0.9 %; Eosinophils # (A) 1.32 10*3/uL (0.04-0.35); Eosinophils % (A) 13.2 %; HCT 46.2 % (37.2-46.3); HGB 15.8 g/dL (12.0-15.0); Lymphocytes # (A) 3.50 10*3/uL (0.90-5.00); Lymphocytes % (A) 35.0 %; MCH 33.7 pg (27.0-32.0); MCHC 34.2 g/dL (32.0-37.0); MCV 98.5 fL (80.0-97.0); Monocytes # (A) 0.77 10*3/uL (0.20-1.00); Monocytes % (A) 7.7 %; Neutrophils # (A) 4.29 10*3/uL (1.80-7.70); Neutrophils % (A) 43.0 %; Platelet Count 246 10*3/uL (140-440); RBC 4.69 10*6/uL (4.10-5.20); RDW 12.6 % (11.5-14.5); WBC 9.99 10*3/uL (4.50-10.00)
[2024-09-11 10:44] VITALS: BP 145/76; PULSE 73
== END ==
LOC: PROCWHC3 09:49
PROVIDERS: ATTEND Internal Medicine Hematology & Oncology
DX: E83.119 Hemochromatosis, unspecified (principal)
CPT/HCPCS: 36415; 85025; 99195